=== PATIENT | male | born 1955 | race Caucasian/White ===

== ENCOUNTER 2024-05-11 13:57 | Outpatient (REF) | payer MEDICARE, SELFPAY ==
--- NOTE | ~2024-05-11 | XR_ITS ---
EXAMINATION: XR FOOT, LEFT CLINICAL INFORMATION: Pain. COMPARISON: None available. TECHNIQUE: AP, lateral, and oblique views of the left foot. FINDINGS: No acute fracture or dislocation. Chronic appearing deformity with a well-corticated osseous fragment along the lateral base of the proximal phalanx of the second toe. Moderate multifocal degenerative osteoarthritis with joint space narrowing and mild subcortical sclerosis more prominent in the first toe. Calcaneal spurring at the level of the insertion site of the Achilles tendon and plantar fascia. Well-corticated osseous body adjacent to the plantar surface of the calcaneus on the lateral view. Mild diffuse soft tissue swelling slightly more prominent along the distal first toe. Scattered vascular calcifications. XR/XR foot LT min 3V IMPRESSION: 1. No acute fractures or malalignment. 2. Moderate multifocal degenerative osteoarthritis. 3. Calcaneal spurring. 4. Chronic appearing deformity with a well-corticated osseous fragment along the lateral base of the proximal phalanx of the second toe, correlate with point tenderness. 5. Well-corticated osseous body adjacent to the plantar surface of the calcaneus, possibly sequela of prior trauma or degenerative changes. 6. Diffuse soft tissue swelling that is slightly more prominent along the distal first toe, correlate with physical examination. Electronically signed by: Sinai Lundberg MD 05/11/2024 03:50 PM SWET[facility]
== END 2024-05-11 13:58 | disposition home or self-care (01) ==
LOC: HO.HMGCX 13:57
PROVIDERS: PCP Family Medicine; Visit Provider Registered Nurse
DX: M79.672 Pain in left foot (principal); M77.50 Other enthesopathy of unspecified foot and ankle
CPT/HCPCS: 73630; 99212

== ENCOUNTER 2024-05-11 13:57 | Outpatient (AMB) | payer MEDICARE, SELFPAY ==
--- NOTE | 2024-05-11 14:04 | MHC.OFFWIV ---
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 While every effort has been made to ensure accuracy, curing press maintainer errors may have been included. The patient is a 68 year old male who presents to the clinic today with left foot pain for the last 2 weeks. He reports that 2 weeks ago he was doing some work when he stepped hard on a metal néstor, having pain in the heel of his foot. 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 He reports that the pain is in the heel primarily in worse when he steps down and for the 1st few steps and then subsides. He reports a slight limp as a result, which has thrown off his gait slightly and created pain in the opposite hip. He typically uses a cane for ambulation. [facility] Social History Patient Tobacco Use Status: Former Tobacco user Review of Systems Const All systems reviewed & are unremarkable except as noted in HPI and below Physical Exam Vital Signs: Last Vital Signs Pulse 93 05/11/24 14:06 BP 122/80 05/11/24 14:06 Pulse Ox 96 05/11/24 14:06 Oxygen Delivery Method Room Air 05/11/24 14:06 BMI result Body Mass Index 32.2 Const General: cooperative, healthy appearing, comfortable, no acute distress and well developed Orientation/consciousness: patient oriented x3 Limitations: no limitations Resp Effort & Inspection: normal respiratory effort and able to speak in complete sentences Skin General skin exam: no rashes or lesions noted Neuro General: patient oriented x3 Extrem Other: Left foot and ankle full range of motion. Strength 5/5. Distal neurovascular exam intact. Tender to palpation along the heel and plantar fascia. General: Yes normal to inspection Results Reviewed Results Reviewed: XR images contemporaneously read by me with findings reflecting calcaneal bone spur. No obvious fracture. Assessment & Plan Assessment & Plan (1) Bone spur of foot: Code(s): M77.50 - Other enthesopathy of unspecified foot and ankle Plan: Supportive measures encouraged and reviewed. Prednisone burst prescribed for anti-inflammatory effects due to intolerance of NSAIDs. Advised patient to follow up with PCP with worsening or failure to resolve. Plan See above for full details and plan. Orders: Orders XR foot LT min 3V Today M79.672 - Pain in left foot Medications: New prednisone 40 mg (2 x 20 mg) PO DAILY 3 days 6 tabs 0RF Coding Level of Care Code Est Pt Level 3 (55085) Diagnoses Bone spur of foot M77.50
[2024-05-11 14:06] VITALS: BP 122/80; PULSE 93; O2SAT 96; BMI 32.2
== END 2024-05-11 14:49 | disposition home or self-care (01) ==
PROVIDERS: PCP Family Medicine; Visit Provider Registered Nurse
DX: M77.50 Other enthesopathy of unspecified foot and ankle (principal)

== ENCOUNTER 2024-07-02 09:12 | Outpatient (REF) | payer MEDICARE, MEDICAID, SELFPAY ==
[2024-07-02 14:47] LABS: Adenovirus PCR Not Detected (Not Detect.); Bordetella parapertussis PCR Not Detected (Not Detect.); Bordetella pertussis PCR Not Detected (Not Detect.); Chlamydia pneumoniae PCR Not Detected (Not Detect.); Coronavirus 229E PCR Not Detected (Not Detect.); Coronavirus HKU1 PCR Not Detected (Not Detect.); Coronavirus NL63 PCR Not Detected (Not Detect.); Coronavirus OC43 PCR Not Detected (Not Detect.); Human metapneumovirus PCR Not Detected (Not Detect.); Influenza A PCR Not Detected (Not Detect.); Influenza B PCR Not Detected (Not Detect.); Mycoplasma pneumoniae PCR Not Detected (Not Detect.); Parainfluenza 1 PCR Not Detected (Not Detect.); Parainfluenza 2 PCR Not Detected (Not Detect.); Parainfluenza 3 PCR Not Detected (Not Detect.); Parainfluenza 4 PCR Not Detected (Not Detect.); RSV PCR Not Detected (Not Detect.); Rhino/Enterovirus PCR Not Detected (Not Detect.)
[2024-07-02 16:00] LABS: SARS-CoV-2 PCR Detected (Not Detect.)
== END 2024-07-02 09:13 | disposition home or self-care (01) ==
LOC: HO.LAB 09:12
PROVIDERS: PCP Family Medicine; Visit Provider Physician Assistant
DX: J06.9 Acute upper respiratory infection, unspecified (principal); B34.9 Viral infection, unspecified; H66.002 Acute suppurative otitis media without spontaneous rupture of ear drum, left ear
CPT/HCPCS: 87633; 93005; 99202

== ENCOUNTER 2024-07-02 09:12 | Outpatient (AMB) | payer MEDICARE, MEDICAID, SELFPAY ==
--- NOTE | 2024-07-02 09:32 | MHC.OFFWIV ---
Intake Vital Signs 07/02/24 09:34 Height 5 ft 11 in Weight 230 lb BMI 32.1 BP 114/70 Blood Pressure Location Lt brachial Position Sitting Pulse 92 Pulse Source Pulse Oximeter Temp 98 F Temp Source Oral Pulse Oximetry (%) 93 Oxygen Delivery Method Room Air Intake Visit Reasons: EP-vomiting, chest pain, diarrheas, wheezing Intake Note: Patient here for vomiting, diarrhea,headaches, chest burning which started Saturday Patient Tobacco Use Status: Former Tobacco user Allergies No Known Allergies Allergy (Verified 07/02/24 09:35) Do you need a note to return to daycare/school/sports/work: No HPI HPI Comments History of Present Illness Details History - The patient is a 68-year-old male presenting with gastrointestinal symptoms and respiratory issues. - Gastrointestinal distress began with queasiness, diarrhea, and vomiting approximately three days prior, with no reports of blood or black in the stool or vomitus. Subjective fevers and chills. - Respiratory issues include coughing, sometimes productive, alongside shortness of breath and wheezing, which the patient manages with prescribed inhalers due to a history of asthma and COPD. - The patient experienced headaches and chest burning, with improvement in solid food intake. - Left ear complaints of associated pain. - Notable for no known antibiotic allergies and has taken aspirin and Imodium recently. -Son also sick with similar symptoms a day prior to his onset and is feeling better now with no antibiotics. Physical Exam General: Cooperative, healthy appearing, comfortable and no acute distress Orientation/consciousness: Patient oriented x3 Limitations: No limitations Head: Normal to inspection Ears: Hearing grossly normal bilaterally, external ears normal and TM's left purulent effusion, TM right normal Nose: Normal external nose present, Normal nares present and No nasal discharge present Face and sinus: Normal facial exam and Yes sinuses nontender, slight tenderness noted Mouth: Normal oral and palatal mucosa present and moist mucous membranes Throat: Yes tonsils normal, Yes uvula midline. Posterior oropharynx erythema Eyes: Appearance normal, both eyes and all related structures Neck: Normal visual inspection Respiratory: Clear to auscultation bilaterally. Normal respiratory effort, able to speak in complete sentences, Actively coughing, no respiratory distress, not tachypneic, no tripod positioning and no use of accessory muscles Cardiovascular: Irregular heart rhythm noted normal rate. Normal S1 and S2 Skin: No rashes or lesions noted Neuro: Patient oriented x3 Extremities: Normal to inspection and Yes no clubbing, cyanosis or edema PFSH Social History Patient Tobacco Use Status: Former Tobacco user Review of Systems Const All systems reviewed & are unremarkable except as noted in HPI and below Physical Exam Vital Signs: Last Vital Signs Temp 98 F 07/02/24 09:34 Pulse 92 07/02/24 09:34 BP 114/70 07/02/24 09:34 Pulse Ox 93 07/02/24 09:34 Oxygen Delivery Method Room Air 07/02/24 09:34 BMI result Body Mass Index 32.1 Office Procedures EKG Details: normal sinus rhythm, LAD, LVH with QRS widening and repolarization (seen on prior at [facility] 04/13/23) [id number], Complete Assessment & Plan Assessment & Plan (1) Viral syndrome: Code(s): B34.9 - Viral infection, unspecified Plan: as below (2) Otitis media: Code(s): H66.90 - Otitis media, unspecified, unspecified ear Qualifiers: Chronicity: acute Laterality: left Otitis media type: suppurative Recurrence: non-recurrent Spontaneous tympanic membrane rupture: without spontaneous rupture Qualified Code(s): H66.002 - Acute suppurative otitis media without spontaneous rupture of ear drum, left ear Plan: The patient's acute gastroenteritis is being managed with supportive measures such as hydration and dietary adjustments. Amoxicillin has been prescribed for seven days for suspected bacterial acute otitis media. The observed irregular heartbeat warranted an EKG for further evaluation. Current respiratory conditions, asthma and COPD, are controlled with specific inhalers, and no allergies to antibiotics were noted. Tests for multiple viral infections, including COVID-19 and flu, were conducted. Continued adherence to current medications and dietary supplements as per advice are recommended to support recovery from acute symptoms. Rest, hydration and OTC meds to treat symptoms. Reviewed EKG, nothing acute, same as prior 04/13/23, as above. 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 Patient was informed and verbally consented to the use of an ambient scribe for clinic note documentation during this visit Orders: Orders Resp Pathogen Panel - [facility] [place] J06.9 - Acute upper respiratory infection, unspecified Medications: New amoxicillin 875 mg PO Q12H 14 tabs 0RF Coding Level of Care Code New Pt Level 4 (59082) Diagnoses Viral syndrome B34.9 Non-recurrent acute suppurative otitis media of left ear without spontaneous rupture of tympanic membrane H66.002 Chronicity: acute Laterality: left Otitis media type: suppurative Recurrence: non-recurrent Spontaneous tympanic membrane rupture: without spontaneous rupture CPT Codes EKG - CPT: 67160-[id number], Complete ([id number])
[2024-07-02 09:34] VITALS: BP 114/70; PULSE 92; TEMP 36.6; O2SAT 93; BMI 32.1
== END 2024-07-02 10:01 | disposition home or self-care (01) ==
PROVIDERS: PCP Family Medicine; Visit Provider Physician Assistant
DX: B34.9 Viral infection, unspecified (principal); H66.002 Acute suppurative otitis media without spontaneous rupture of ear drum, left ear

== ENCOUNTER 2024-11-11 09:33 | Outpatient (AMB) | payer MEDICARE, MEDICAID, SELFPAY ==
[2024-11-11 09:46] VITALS: BP 120/80; PULSE 63; TEMP 36.6; O2SAT 98; BMI 32.1
--- NOTE | 2024-11-11 09:46 | AM.OFFWIN_ITS ---
Intake Vital Signs 11/11/24 09:46 Height 5 ft 11 in Weight 230 lb BMI 32.1 BP 120/80 Blood Pressure Location Rt brachial Position Sitting Pulse 63 Pulse Source Pulse Oximeter Temp 97.8 F Temp Source Oral Pulse Oximetry (%) 98 Oxygen Delivery Method Room Air Intake Visit Reasons: EP congestion, mucus * Patient Tobacco Use Status: Former Tobacco user Allergies No Known Allergies Allergy (Verified 11/11/24 09:46) Do you need a note to return to daycare/school/sports/work: No HPI HPI Comments History of Present Illness Details History - The patient is a 68-year-old male pres enting with acute respiratory symptoms and left ear pain. - He reports persistent cough, congestio n, wheezing, and shortness of breath las ting five to six days. - He experienced a fever once, which amandeep f-resolved, and denied regularly monitoring temperatures. - His medical history includes an NSTEMI in September, treated with stent placement. - He reports left ear pain with a histor y of past ear infection, now attributed to head congestion. - The patient uses Xolair, Trelegy, albu terol inhaler as needed and Flonase Physical Exam General: Cooperative, healthy appearing, comfortable and no acute distress Orientation/consciousness: Patient oriented x3 Limitations: No limitations Head: Normal to inspection Ears: Left ear pain present, history of ear infection Nose: Normal external nose present, Normal nares present and No nasal discharge present Face and sinus: Normal facial exam and Yes sinuses nontender Mouth: Normal oral and palatal mucosa present and moist mucous membranes Throat: Yes tonsils normal, Yes uvula midline. Posterior oropharynx erythema Eyes: Appearance normal, both eyes and all related structures Neck: Normal visual inspection Respiratory: Clear to auscultation bilaterally. Normal respiratory effort, able to speak in complete sentences, no respiratory distress, not tachypneic, no tripod positioning and no use of accessory muscles Cardiovascular: Regular rate and rhythm. Normal S1 and S2 Skin: No rashes or lesions noted Neuro: Patient oriented x3 Extremities: Normal to inspection and Yes no clubbing, cyanosis or edema PFSH Social History Patient Tobacco Use Status: Former Tobacco user Review of Systems Const All systems reviewed & are unremarkable except as noted in HPI and below Physical Exam Vital Signs: Last Vital Signs Temp 97.8 F 11/11/24 09:46 Pulse 63 11/11/24 09:46 BP 120/80 11/11/24 09:46 Pulse Ox 98 11/11/24 09:46 Oxygen Delivery Method Room Air 11/11/24 09:46 BMI result Body Mass Index 32.1 Assessment & Plan Assessment & Plan (1) URI, acute: Code(s): J06.9 - Acute upper respiratory infection, unspecified Plan: VSS, pt well appearing and PE unremarkable. A prescription for a Z-Cy was provided to address possible bacterial infection, leveraging its anti- inflammatory properties for airway management. The patient is to continue using the albuterol inhaler, with assurance of its availability and expiration status. Instruction was given on Flonase administration techniques for enhanced sinus delivery. Patients should observe symptom progression, especially breathing difficulties, especially given his recent NSTEMI history. He was advised to seek prompt medical attention for any significant symptom escalation or potential complications. Continued follow-up with primary care for cardiovascular management remains essential. Patient was informed and verbally consented to the use of an ambient scribe for clinic note documentation during this visit Medications: New azithromycin For 250 mg dose pack: take 500 mg today (day 1), then 250 mg for 4 days (days 2-5) PO 6 tabs 0RF Coding Level of Care Code New Pt Level 3 (61654) Diagnoses URI, acute J06.9
--- OUTSIDE RECORDS SUMMARY | 2024-11-11 10:14 | XMS_ITS | Data Portability ---
Author Organization [employer] Address [address] [place] [id number] Care Team Providers Care Principal Data Architect Name Role Phone [facility] Referring Provider [phone] Assessment No assessment recorded. Plan of Treatment Reminders Order Date Submit Date Provider Last Modified By Organization Details Last Modified Time Details Appointments None recorde d. Lab culture , urine 022 12/10/19 [facility] (Centralized Electronic Ordering - All Locations), Patient Can Go To The Location Of Their Choice, [id number] 07:13:06 Referral None recorde d. Procedures None recorde d. Surgeries None recorde d. Imaging None recorde d. Medication Orders None recorde d. Patient TargetsNo targets recorded. Patient InstructionsNo instructions recorded. Reason for Referral None Reported. Results Created Date Observation Date Name Description Value Unit Range Abnormal Flag Note LastModifiedBy Organization Detail LastModifiedTime 12/10/1912/09/2021 URINE CULTU RE specimen description URINE Not Available [facility] (Centralized Electronic Ordering - All Locations) Patient Can Go To The Location Of Their Choice, [id number] 12/11/2021 07:13:05 12/10/1912/09/2021 URINE CULTU RE special requests NONE Not Available [facility] (Centralized Electronic Ordering - All Locations) Patient Can Go To The Location Of Their Choice, [id number] 12/11/2021 07:13:05 12/10/19 22 12/11/2021 URINE CULTU RE culture NO GROWTH Not Available [facility] (Centralized Electronic Ordering - All Locations) Patient Can Go To The Location Of Their Choice, [id number] 12/11/2021 07:13:05 12/10/19 22 12/11/2021 URINE CULTU RE report status FINAL 2021 Not Available [facility] (Centralized Electronic Ordering - All Locations) Patient Can Go To The Location Of Their Choice, [id number] 12/11/2021 07:13:05 Result Notes None recorded. Medical Equipment None Reported. Medications Name Sig Start Date Stop Date Status Note LastModified by Organization Details LastModified Time clotrimazole 10 mg kyree LET 1 KYREE DISSOLVE IN MOUTH 5 TIMES A DAY FOR 14 DAYS active Not Available Not Available Not Available nystatin 100,000 unit/mL oral suspension SWISH WITH 1ML FOR 1 MINUTE FOUR TIMES DAILY FOR 10 DAYS active Not Available Not Available Not Available azithromycin 250 mg tablet TAKE 2 TABLETS BY MOUTH ON DAY 1, THEN 1 TABLET ON DAYS 2-10 DIRECTED active Not Available Not Available Not Available prednisone 5 mg tablet TAKE DIRECTED FOR 14 DAYS. SEE ATTACHED SHEET active Not Available Not Available No t Available fexofenadine 180 mg tablet TAKE 1 TABLET BY MOUTH EVERY DAY active Not Available Not Available No t Available peg-electrol yte solution 420 gram oral solution TAKE 8 ML DIRECTED active Not Available Not Available Not Available erythromycin 5 mg/gram (0.5 %) eye ointment APPLY TO AFFECTED EYE(S) 3 TIMES PER DAY FOR 7 DAYS active Not Available Not Available No t Available docusate sodium 100 mg capsule TAKE 2 CAPSULES BY MOUTH EVERY DAY active Not Available Not Available No t Available omeprazole 20 mg capsule,lela yed release TAKE 2 CAPSULES BY MOUTH TWICE A DAY active Not Available Not Available No t Available fluticasone propionate 50 mcg/actuatio n nasal spray,suspen jhon SPRAY 2 SPRAYS INTO EACH NOSTRIL EVERY DAY active Not Available Not Available No t Available oxycodone 5 mg tablet TAKE 1 TABLET BY MOUTH EVERY 4 HOURS NEEDED FOR PAIN active Not Available Not Available No t Available [place] 0.025 % (0.035 %) eye drops USE 1 DROP(S) IN BOTH EYES TWICE A DAY NEEDED active Not Available Not Available No t Available peg 3350-electro lytes 236 gram-22.74 gram-6.74 gram-5.86 gram solution TAKE 8 OUNCE BY MOUTH DIRECTED FOLLOW INSTRUCTION S PROVIDED TO YOU BY [facility]CTORS OFFICE active Not Available Not Available No t Available Dupixent 300 mg/2 mL subcutaneous syringe active Not Available Not Available Not Available Xolair 75 mg/0.5 mL subcutaneous syringe active Not Available Not Available Not Available Xolair 150 mg/mL subcutaneous syringe active Not Available Not Available Not Available Trelegy Ellipta 200 mcg-62.5 mcg-25 mcg powder for inhalation INHALE 1 PUFF INTO THE LUNGS ONCE DAILY. active Not Available Not Available Not Available Vitals Date Recorded Body weight Body temperature Heart rate Body height Respiratory rate Oxygen saturation Oxygen saturation in Arterial blood by Pulse oximetry Heart rate Oxygen saturation Oxygen saturation in Arterial blood by Pulse oximetry Respiratory rate Body weight Body height Body temperature Systolic blood pressure Diastolic blood pressure Systolic blood pressure Diastolic blood pressure Provider Name and Address Organization Details Last Updated DateTime 2 674872 g 98.9 [degF] 60 /min 182.88 cm 20 /min 99 % 99 % 60 /min 99 % 99 % 20 /min 203052 g 182.88 cm 98.9 [degF] 117 mm[Hg] 55 mm[Hg] 117 mm[Hg] 55 mm[Hg] Not Available [facility] - production 2 17:05:51 Social History None recorded. Functional Status None recorded. Mental Status None recorded. Family History Nothing Reported. Medical History No medical history recorded. Past Encounters Encounter ID Performer Location Encounter Start Date Encounter Closed Date Diagnosis/Indication Diagnosis SNOMED-CT Code Diagnosis ICD10 Code Diagnosis Note [id number] Jhonny Marinelli MD [facility] - [facility] [address] [place] [phone] 12/09/2021 16:44:19 03/26/2022 11:47:03 Dysuria [id number] R30.9 Will send off urine culture. U/A not suggestive of UTI at this time. Advised to f/u with PCP re: urology referral Health Concerns Section Related Observation LastModified by Organization Detai ls LastModified Time None Recorded Concern Status LastModified by Organization Details LastModified Time None Recorded Advance Directives Directive None Recorded Payers Insurance Date Sequence Insurance Name Policy Number Policy Turk Covered Member ID Turk Member ID Guarantor Name 12/09/2021 1 [facility] - DOS PRIOR TO 2022 - DUAL ELIGIBLE (MEDICARE REPLACEMENT/ADV ANTAGE - HMO) Jovany Phillips [id number] Jovany Phillips Notes Date Note Type Note Provider Name and Address Organization Details Recorded Time 12/09/2021 text/html [facility] Nursing Assessment: Reason For Request: Burning with urination Patient Reports: Painful urination; Painful urination with or without fever; Inability to fully empty bladder Chief Complaints: UTI/Pyelonephritis PMH: COPD/Asthma Allergies: No Known Comments: Member c/o burning sensation and pain with urination. He can't keep a stream during urination it trickles. Denies bleeding, no foul odor, urine clear but does have urgency and frequency, denies fever or chills. He has had these symptom over a year but every check up has been benign, denies prostate issues. Would like an in home assessment of symptoms. .................. .................. .................. .................. .................. .................. .................. ............... Higher Level Teaching Assistant Note: Patient is a 66 year old male with concern for UTI. Patient alert, oriented and ambulatory. Patient in no acute distress, airway patent, breathing normally, skin WPD. Patient has been experiencing burning with urination for a while now. Patient states that it kent right before he urinates, when he's urinating he looses pressure and the stream begins to trickle and then starts to burn again. Patient also notes pressure in his bladder area when urinating. Patient denies any past urinary issues. Patient has been tested for UTI in the past, with negative results. No culture was every submitted. Urine sample obtained and dipped; no significant changes to note. No further complaints. Vital signs assessed and all within normal limits. Red flags discussed. Consulted with Dr. Marinelli. Patient is to follow up with PCP/care team regarding his signs, symptoms and todays visit. Patient should consider making an appointment with a urologist. Urine brought to [facility] for culture. Patient to monitor symptoms and health for any changes. Contact [facility] for re-visit if symptoms persist. Contact 911 for any discussed red flags or other emergencies. .................. .................. .................. .................. .................. .................. .................. ............... Disposition: Fulfilled note:- Per above- Has had clean urines in the past- Mild flank pain in the past few days (not today); low concern for kidney stones Jhonny Marinelli MD [address] [facility],[address], [place], [phone], [email or web address] 12/09/2021 21:50:34
--- OUTSIDE RECORDS SUMMARY | 2024-11-11 10:15 | XMS_ITS | Data Portability ---
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 Left ossiculoplasty prosthesis is still in the process of extrusion, but we will leave this alone for now. I gave him reassurance that the ears appear stable and I would recommend continued observation with follow-up in 1 year. The itchiness in the left ear may be due to the presence of humidity due to the perforation. Recommended the Torin's ear dryer to be used if he has sensation of moisture which will help to dehumidifier the ear canal and hopefully relieve his symptoms. I strongly recommend once again that he avoid Q-tip use. [email or web address] Not available 02/05/2024 09:56:49 Plan of Treatment Reminders Order Date Submit Date Provider Last Modified By Organization Details Last Modified Time Details Appointments Establish ed 10 2024 09:00A M GARETH DAUGHERTY MD Not available Not available Not available Lab None recorded. Referral None recorded. Procedures None recorded. Surgeries None recorded. Imaging None recorded. Medication Orders None recorded. Patient TargetsNo targets recorded. Patient Instructions Encounter Date Encounter Id Patient Instructions Last Modified By Organization Details Last Modified Time 12/13/2023 [id number] Surgical cavity clean and moist. Finish current antibiotic. Follow up as scheduled. [email or web address] Not available 12/13/2023 12:08:33 Reason for Referral None Reported. Results Created Date Observation Date Name Description Value Unit Range Abnormal Flag Note LastModifiedBy Organization Detail LastModifiedTime 02/18/20 24 09/18/2023 imagi ng/di agnos tic resul t No observ ation record ed. [email or web address] Not Available 19:41:52 02/18/20 24 09/25/2023 imagi ng/di agnos tic resul t No observ ation record ed. [email or web address] Not Available 19:41:54 02/18/20 24 09/29/2020 imagi ng/di agnos tic resul t No observ ation record ed. [email or web address] Not Available 19:41:57 02/18/20 24 11/03/2019 imagi ng/di agnos tic resul t No observ ation record ed. [email or web address] Not Available 19:42:27 02/18/20 24 11/19/2019 imagi ng/di agnos tic resul t No observ ation record ed. [email or web address] Not Available 19:42:33 02/18/20 24 03/20/2023 imagi ng/di agnos tic resul t No observ ation record ed. [email or web address] Not Available 19:43:06 02/18/20 24 03/20/2023 imagi ng/di agnos tic resul t No observ ation record ed. [email or web address] Not Available 19:43:10 02/18/20 24 04/05/2020 imagi ng/di agnos tic resul t No observ ation record ed. [email or web address] Not Available 19:43:11 02/18/20 24 09/29/2020 audio gram No observ ation record ed. [email or web address] Not Available 19:43:37 02/18/20 24 11/03/2019 audio gram No observ ation record ed. [email or web address] Not Available 19:43:50 02/18/20 24 04/05/2020 audio gram No observ ation record ed. [email or web address] Not Available 19:44:10 Result Notes None recorded. Problems Name Problem SNOMED Code Status Onset Date Resolution Date Notes Provider Name and Address Organization Details Recorded Time Bilatera l disorder of Eustachi an tubes 80295474228 69368 Active 2019 Other specifie d disorder s of Eustachi an tube, bilatera l; Note: Date Diagnose d: 11/03/2019 10:37 AM (H69.83) Not Available [facility] 4 02:51:37 Marginal perforat ion of tympanic membrane 60379489 Active 2022 Other marginal perforat ions of tympanic membrane , left ear; Note: Date Diagnose d: 3 10:39 AM (H72.2X2 ) Not Available [facility] 4 02:51:41 Granulom atous disorder of the skin and subcutan eous tissue 432182857 Completed 201901/31/2024 Granulom atous disorder of the skin and subcutan eous tissue, unspecif ied; Note: Date Diagnose d: 0 12:00 PM (L92.9) Not Available [facility] 4 02:51:42 Mixed conducti ve and sensorin eural hearing loss of left ear 13382210640 107 Active 2020 Mixed conducti ve and sensorin eural hearing loss, unilater al, left ear with restrict ed hearing on the contrala teral side; Note: Date Diagnose d: 09/29/2020 4:18 PM (H90.A32 ) Not Available [facility] 4 02:51:37 Conducti ve hearing loss, bilatera l 063985264 Active 2019 Conducti ve hearing loss, bilatera l; Note: Date Diagnose d: 0 2:49 PM (H90.0) Conduc tive hearing loss, bilatera l; Note: Date Diagnose d: 11/03/2019 11:09 AM (H90.0) ; Start Date : 11/03/19 Not Available [facility] 4 02:51:38 Chronic sphenoid al sinusiti s 70582456 Active 2022 Chronic sphenoid al sinusiti s; Note: Changed from J32.3 to J32.3 (07/24/19 24 9:53 AM) , Date Diagnose d: 3 10:39 AM (J32.3) Not Available [facility] 4 02:51:37 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 831613604 Completed 201901/31/2024 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, right ear; Note: Date Diagnose d: 0 9:04 AM (H95.01) Not Available [facility] 4 02:51:41 Orthosta tic hypotens ion 05333649 Active 2019 Hypotens ion, postural ; Note: Date Diagnose d: 11/03/2019 11:44 AM (I95.1) Not Available [facility] 4 02:51:35 Impacted cerumen of bilatera l ears 51415314504 05497 Active 2019 Impacted cerumen, bilatera l; Note: Date Diagnose d: 0 3:16 PM (H61.23) Not Available [facility] 4 02:51:37 Pain of left temporom andibula r joint 97965781687 957124 Active 2019 Arthralg ia of left temporom andibula r joint; Note: Date Diagnose d: 11/03/2019 10:37 AM (M26.622 ) Not Available [facility] 4 02:51:39 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 - [facility] 4 17:05:44 Partial loss of ear ossicles 14446800 Active 2023 GARETH DAUGHERTY MD [address] [facility],[place] [address], [facility] [place], [address] , [facility] - [facility] 17:10:21 Problem Notes None recorded. Procedures Surgical History Date Name Laterality Status Provider Name and Address Organization Details Recorded Time 024 JMSNasal/Sinus Endoscopy-PRIOR surgical cavities completed NONI HO MD [address] [facility],[address], [address], [facility] - [facility] 01/16/2024 16:09:59 024 JMSNasal/Sinus Endoscopy-DEBRIDEME NT completed NONI HO MD 100 [facility],[address], [address], [facility] - [facility] 12/25/2023 11:53:29 024 Nasal Endoscopy completed [facility] 100 [facility], [address], [facility] - [facility] 12/13/2023 12:47:38 024 endoscopic sphenoidectomy completed NONI HO MD [address] [facility],[address], [address], [facility] - [facility] 12/10/2023 14:24:18 functional endoscopic sinus surgery completed NONI HO MD [address] [facility],[address], [address], [facility] - [facility] 12/10/2023 14:24:02 open reduction of nasal fracture completed Kaitlyn Becker [place] - [facility] 02/05/2024 09:15:22 operative procedure on knee completed Kaitlyn Becker [place] - [facility] 02/05/2024 09:19:07 hemorrhoidectomy completed Kaitlyn Becker [place] - [facility] 02/05/2024 09:19:19 Imaging Results Imaging Date Name Status [facility]Modified by [facility] Details LastModified Time 09/18/2023 imaging/diagno stic result completed Information not available 02/18/2024 19:41:52 09/25/2023 imaging/diagno stic result completed Information not available 02/18/2024 19:41:54 09/29/2020 imaging/diagno stic result completed Information not available 02/18/2024 19:41:57 11/03/2019 imaging/diagno stic result completed Information not available 02/18/2024 19:42:27 11/19/2019 imaging/diagno stic result completed Information not available 02/18/2024 19:42:33 03/20/2023 imaging/diagno stic result completed Information not available 02/18/2024 19:43:06 03/20/2023 imaging/diagno stic result completed Information not available 02/18/2024 19:43:10 04/05/2020 imaging/diagno stic result completed Information not available 02/18/2024 19:43:11 09/29/2020 audiogram completed Information not available 02/18/2024 19:43:37 11/03/2019 audiogram completed Information not available 02/18/2024 19:43:50 04/05/2020 audiogram completed Information not available 02/18/2024 19:44:10 Procedure Notes None recorded. Medical Equipment None Reported. Allergies No known drug allergies Medications Name Sig Start Date Stop Date Status Note LastModified by Organization Details LastModified Time losartan 50 mg tablet TAKE 1 TABLET BY MOUTH EVERY DAY 02/04 completed Not Available Not Available Not Available prednison e 10 mg tablet TAKE 6 TABS DAILY FOR 2 DAYS THEN DECREASE BY 1 TAB EVERY 2 DAYS UNTIL FINISHED 02/04 completed Not Available Not Available Not Available doxycycli ne hyclate 100 mg capsule by mouth 2023 active Medicati on ID: [id number] D uration Value: 14 Brand Name: doxycycl ine hyclate Send Method: E-Prescr ibed Sub s Allowed: subs OK Speci al Instruct ion: Take 1 PO BID X 21 days Med icationG enericNa me: doxycycl ine hyclate Not Available Not Available Not Available simvastat in 10 mg tablet TAKE 1 TABLET BY MOUTH EVERY DAY AT BEDTIME FOR 180 DAYS active Not Available Not Available No t Available prednison e 5 mg tablet PLEASE SEE ATTACHED FOR DETAILED DIRECTIO NS 02/04 completed Not Available Not Available Not Available fexofenad ine 180 mg tablet TAKE 1 TABLET BY MOUTH EVERY DAY active Not Available Not Available No t Available ciproflox acin 500 mg tablet TAKE 1 TABLET BY MOUTH EVERY 12 HOURS FOR 7 DAYS 02/04 completed Not Available Not Available Not Available aspirin 81 mg tablet,de layed release TAKE 1 TABLET BY MOUTH EVERY DAY active Not Available Not Available No t Available tramadol 50 mg tablet TAKE 1 TO 2 TABLETS BY MOUTH EVERY 4 HOURS NEEDED FOR MODERATE PAIN. DO NOT EXCEED 8 TABLETS (400MG) PER DAY. 02/04 completed Not Available Not Available Not Available ciproflox acin 0.3 % eye drops 08/07 completed Medicati on ID: [id number] B rand Name: Ciloxan Send Method: E-Prescr ibed Sub s Allowed: subs OK Speci al Instruct ion: Instill 4 drops twice a day into affected ear for 10 days [facility] me: Ciloxan Not Available Not Available Not Available losartan 25 mg tablet active Medicati on ID: [id number] B rand Name: losartan Send Method: E-Prescr ibed Sub s Allowed: subs OK Medic ationGen ericName : losartan Not Available Not Available Not Available hydrochlo rothiazid e 12.5 mg capsule TAKE 1 CAPSULE BY MOUTH DAILY FOR 60 DAYS. 02/04 completed Not Available Not Available Not Available docusate sodium 100 mg capsule TAKE 1 CAPSULE BY MOUTH TWICE A DAY 02/04 completed Not Available Not Available Not Available omeprazol e 20 mg capsule,d elayed release TAKE 1 CAPSULE BY MOUTH EVERY DAY active Not Available Not Available No t Available scopolami ne 1 mg over 3 days transderm al patch APPLY 1 PATCH TO THE BACK OF THE LEFT EAR EVERY 72 HOURS. REMOVE OLD PATCH BEFORE APPLYING NEW ONE. DISCONTI NUE WHEN NAUSEA CONTROLL ED. 02/04 completed Not Available Not Available Not Available losartan 100 mg tablet TAKE 1 TABLET BY MOUTH EVERY DAY 02/04 completed Not Available Not Available Not Available fluticaso ne propionat e 50 mcg/actua tion nasal spray,[employer] pension SPRAY 2 SPRAYS INTO EACH NOSTRIL EVERY DAY 02/04 completed Not Available Not Available Not Available amoxicill in 875 mg-potass ium clavulana te 125 mg tablet TAKE 1 TABLET BY MOUTH TWICE A DAY FOR 7 DAYS 02/04 completed Not Available Not Available Not Available Vitamin B-12 1,000 mcg tablet 2019 active Medicati on ID: [id number] B rand Name: Vitamin B-12 Sen d Method: E-Prescr ibed Sub s Allowed: subs OK Medic ationGen ericName : Vitamin B-12 Not Available Not Available Not Available oxycodone 5 mg tablet TAKE 1 TABLET BY MOUTH EVERY 4 HOURS NEEDED SEVERE PAIN 02/04 completed Not Available Not Available Not Available TobraDex 0.3 %-0.1 % eye drops,[employer] pension 02/04 completed Medicati on ID: [id number] D uration Value: 10 Prescri bed By Name: Kilo Munroe nd Name: TobraDex Send Method: E-Prescr ibed Sub s Allowed: subs OK Speci al Instruct ion: Instill 4 drops in the affected ear BID for 10 days Med icationG enericNa me: TobraDex Not Available Not Available Not Available enoxapari n 40 mg/0.4 mL subcutane ous syringe INJECT THE CONTENTS OF 1 SYRINGE SUBCUTAN EOUSLY EVERY DAY 02/04 completed Not Available Not Available Not Available Vitamin D3 25 mcg (1,000 unit) tablet 2019 active Medicati on ID: [id number] D uration Value: 90 Brand Name: Vitamin D3 Send Method: E-Prescr ibed Sub s Allowed: subs OK Speci al Instruct ion: TAKE 1 TABLET BY MOUTH EVERY DAY Medi cationGe nericNam e: Vitamin D3 Not Available Not Available Not Available Ciprodex 0.3 %-0.1 % ear drops,[employer] pension Instill 4 drop into left ear twice a day as directed 02/04 completed Medicati on ID: [id number] D uration Value: 10 Brand Name: Ciprodex Send Method: E-Prescr ibed Sub s Allowed: subs OK Speci al Instruct ion: x 10 days Med icationG enericNa me: Ciprodex Not Available Not Available Not Available GaviLyte- G 236 gram-22.7 4 gram-6.74 gram-5.86 gram oral solution TAKE 8 OUNCE BY MOUTH DIRECTED DRINK A GLASS EVERY 10-15 MINUTES active Not Available Not Available No t Available Combivent Respimat 20 mcg-100 mcg/actua tion solution for inhalatio n INHALE 1 PUFF UP TO 4 TIMES A DAY NEEDED active Not Available Not Available No t Available Incruse Ellipta 62.5 mcg/actua tion powder for inhalatio n 02/04 completed Medicati on ID: [id number] D uration Value: 30 Brand Name: Incruse Ellipta Send Method: E-Prescr ibed Sub s Allowed: subs OK Speci al Instruct ion: INHALE 1 PUFF BY MOUTH EVERY DAY 24 HOURS APART Me dication GenericN estefania: Incruse Ellipta Not Available Not Available Not Available Breo Ellipta 200 mcg-25 mcg/dose powder for inhalatio n 02/04 completed Medicati on ID: [id number] D uration Value: 90 Brand Name: Breo Ellipta Send Method: E-Prescr ibed Sub s Allowed: subs OK Speci al Instruct ion: INHALE 1 PUFF DAILY Me dication GenericN estefania: Breo Ellipta Not Available Not Available Not Available Fasenra 30 mg/mL subcutane ous syringe 02/04 completed Medicati on ID: [id number] D uration Value: 28 Brand Name: Fasenra Send Method: E-Prescr ibed Sub s Allowed: subs OK Medic ationGen ericName : Fasenra Not Available Not Available Not Available Xolair 75 mg/0.5 mL subcutane ous syringe active Not Available Not Available Not Available Xolair 150 mg/mL subcutane ous syringe active Not Available Not Available Not Available Trelegy Ellipta 200 mcg-62.5 mcg-25 mcg powder for inhalatio n INHALE 1 PUFF INTO THE LUNGS ONCE DAILY. active Not Available Not Available No t Available Vitals Date Recorded Body height Body mass index (BMI) Body weight Provider Name and Address Organization Details Last Updated DateTime 12/25/2023 180.34 cm 32.8 kg/m2 247273.21 g Tejas Tru[place] - [facility] 12/25/2023 11:26:50 Date Recorded Body height Body mass index (BMI) Body weight Provider Name and Address Organization Details Last Updated DateTime 01/16/2024 180.34 cm 32.8 kg/m2 037034.21 g Tejas Trujillo [place] - [facility] 01/16/2024 15:50:49 Date Recorded Body height Body mass index (BMI) Body weight Provider Name and Address Organization Details Last Updated DateTime 02/05/2024 180.34 cm 32.8 kg/m2 138272.21 g Kaitlyn Becker [facility] 02/05/2024 09:07:08 Date Recorded Body height Body mass index (BMI) Body weight Provider Name and Address Organization Details Last Updated DateTime 12/13/2023 180.34 cm 32.8 kg/m2 838140.21 g Kaitlyn Becker [facility] 12/13/2023 11:50:46 Social History None recorded. Functional Status None recorded. Mental Status None recorded. Family History Nothing Reported. Medical History Condition Response Allergies/Hayfever Y Nasal or Sinus Problems Y Anemia Y Diabetes Y Hyperlipidemia Y Asthma Y GERD/Reflux Y Sleep Disorder Y Hypertension Y Past Encounters Encounter ID Performer Location Encounter Start Date Encounter Closed Date Diagnosis/Indication Diagnosis SNOMED-CT Code Diagnosis ICD10 Code Diagnosis Note [id number] YUMIKO LEWIS PA-C [facility] [address] [address] 12/13/2023 11:47:45 12/13/2023 12:03:20 Chronic sphenoidal sinusitis 84051623 J32.3 [id number] NONI MOLINA MD [facility] [address] [address] 12/25/2023 11:16:43 12/25/2023 11:59:34 Chronic sphenoidal sinusitis 41070674 J32.3 Patient with chronic sinusitis and recent issues with right sphenoid sinusitis. Endoscopic drainage performed. Treated for Pseudomona s infection. Crusting debrided today. I suspect his headaches are likely tension headaches but I am hopeful his symptoms might improved with the removal of the sphenoid crust. He will start saline irrigation s. He had a mild vagal reaction. f/u in 3 weeks as planned Headache 70225591 R51.9 [id number] NONI MOLINA MD [facility] [address] [address] 01/16/2024 15:21:53 01/16/2024 16:11:49 Chronic sphenoidal sinusitis 03956509 J32.3 Overall doing well. No evidence of residual crusting. Suggest irrigation s twice weekly. Follow-up with Dr. Daugherty for management of his ear disease. I can see him back in the future as necessary Bilateral tympanic membrane central perforation 7121328120 936629 H72.03 [id number] GARETH DAUGHERTY MD [facility] [address] [address] 02/05/2024 08:51:50 02/05/2024 09:56:27 Adhesive middle ear disease 6573111 H74.11 Bilateral disorder of Eustachian tubes 9388343646 384822 H69.83 Central pe rforation of left tympanic membrane 8949768048 683991 H72.02 Marginal p erforation of tympanic membrane 45929023 H72.2X2 Partial lo ss of ear ossicles 36704705 H74.323 Health Concerns Section Related Observation LastModified by Organization Detai ls LastModified Time None Recorded Concern Status LastModified by Organization Details LastModified Time None Recorded Advance Directives Directive None Recorded Payers Insurance Date Sequence Insurance Name Policy Number Policy Turk Covered Member ID Turk Member ID Guarantor Name 08/27/2024 3 [facility] [place]IC[place] REPLAC[place]/AD VANTAGE - HMO) Jovany Phillips [id number] Jovany Phillips 01/27/2024 2 [place] [facility] Jovanyaldo Phillips [id number] Jovany Phillips 08/28/2024 3 [facility] ([facility] H[facility]) Jovany Phillips [id number] Jovany Phillips 08/20/2024 1 [place] [employer] Jovany Phillips [id number] Jovany Phillips 08/28/2024 2 [facility] - DOS ON OR AFTER 2022 - [employer] (MEDICARE REPLACEMENT/AD VANTAGE - HMO) Jovany Phillips [id number] Jovany Phillips 10/02/2024 2 [place] [facility] Jovany Phillips [id number] Jovany Phillips Notes Date Note Type Note Provider Name and Address Organization Details Recorded Time 12/13/2023 text/html 68 year old male presents for postoperative evaluation following left endoscopic sphenoidotomy with tissue removal on 12/[address] Ho. Not much pain, no bleeding from the nose. Spitting up a little blood in the morning. No fevers. NONI OH MD [address] [facility],[address], [address], [facility] 12/13/2023 12:47:51 12/25/2023 text/html Patient still no alexis a bandlike headache. He underwent endoscopic drainage of the right sphenoid sinus. Has been doing saline spray 4 times daily NONI HO MD 100 [facility],[address], [address], [facility] - [facility] 12/25/2023 11:57:01 01/16/2024 text/html Patient found to have chronic sphenoid sinusitis with Pseudomonas. He really has not had any significant complaints. Last visit significant crusting was noted. He has been doing irrigations and noted some fullness in his ears. He has a history of chronic eustachian tube dysfunction and adhesive ear disease, now with TM perforations NONI HO MD [address] [facility],[address] [place], [address], [place] - [facility] 01/16/2024 16:11:41 02/05/2024 text/html Patient with his tory of chronic eustachian tube dysfunction. He had cholesteatoma in the left ear which was operated on back in 2007. He had two stage surgery for cholesteatoma in the right ear in 2019 and 2020. Patient did well postoperatively and had bilateral T tubes in place as of September 2020. I saw him back in March patient was forming a new limited retraction pocket on the right at the site of the old T-tube. The left T-tube had also extruded and there was a small perforation at that site.Patient recently had sinus surgery with Dr. Ho. Patient reports that the left ear is feeling intermittently itchy and is prone to getting blocked up, but no otorrhea. GARETH DAUGHERTY MD [address] [facility],[place] [address], [place], [address], [facility] - [facility] 02/05/2024 09:57:19
--- OUTSIDE RECORDS SUMMARY | 2024-11-11 10:15 | XMS_ITS | Data Portability ---
Author Organization [facility], PAIN OFFICE Address [address] [place] [address] Care Team Providers Care Radio Time Buyer Name Role Phone CARLENE ALFONSO Primary Care Provider Assessment Encounter Date Assessment Date Assessment LastModified by Organization Details LastModified Time 05/25/2024 05/25/2024 Jovany Phillips is a 68 year old man with Right knee pain. X-ray Knee shows osteoarthritis . He has trialed physical therapy with no pain benefit. He is here for a right knee steroid injection under ultrasound guidance .The risks and benefits of the procedure? ? ? were discussed in detail. He wishes to proceed. He will follow up for a left knee injection under ultrasound guidance [email or web address] Not available 05/25/2024 10:40:49 06/01/2024 06/01/2024 Jovany Phillips is a 68 year old man who is complaining of knee pain, left is greater than right. X-ray Knee shows osteoarthritis . He has trialed physical therapy with no pain benefit. He is here for a left knee steroid injection under ultrasound guidance .The risks and benefits of the procedure were discussed in detail. He wishes to proceed. He will follow up for a LESI in 08/26/2024 [email or web address] Not available 06/01/2024 11:32:44 08/19/2024 08/19/2024 Jovany Phillips is a 68 year old man with low back pain radiating into both lower extremities. On exam ,he has pain on flexion. MRI Lumbar spine shows Spondylotic and degenerative disc changes of the lumbar spine are present . He is here for a Lumbar epidural steroid injection under fluoroscopic guidance . The risks and benefits of the procedure were discussed in detail. He wishes to proceed. He is complaining of Right knee pain. X-ray Knee shows osteoarthritis . He has trialed physical therapy with no pain benefit. I recommend a right knee steroid injection under ultrasound guidance .The risks and benefits of the procedure? ? ? were discussed in detail. He wishes to proceed. An appointment has been booked for the same. 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 [email or web address] Not available 08/19/2024 13:59:51 08/31/2024 08/31/2024 Jovany Phillips is a 68 year old man who is complaining of knee pain, left is greater than right. X-ray Knee shows osteoarthritis . He has trialed physical therapy with no pain benefit. He is here for a left knee steroid injection under ultrasound guidance .The risks and benefits of the procedure were discussed in detail. He wishes to proceed. He will follow up for a right knee steroid injection under ultrasound guidance [email or web address] Not available 08/31/2024 10:38:01 09/07/2024 09/07/2024 Jovany Phillips is a 68 year old man with Right knee pain. X-ray Knee shows osteoarthritis . He has trialed physical therapy with no pain benefit. He is here for a right knee steroid injection under ultrasound guidance .The risks and benefits of the procedure? ? ? were discussed in detail. He wishes to proceed. He will follow up as needed [email or web address] Not available 09/07/2024 10:01:48 Plan of Treatment Reminders Order Date Submit Date Provider Last Modified By Organization Details Last Modified Time Details Appointments PROCEDURE 2024 11:30A M Guillermo winter MD Not available Not available Not available Lab None recorded. Referral None recorded. Procedures None recorded. Surgeries None recorded. Imaging None recorded. Medication Orders None recorded. Patient TargetsNo targets recorded. Patient Instructions Encounter Date Encounter Id Patient Instructions Last Modified By Organization Details Last Modified Time 05/25/2024 [id number] He was advised against bed rest lasting longer than four days and to continue activities as tolerated. [email or web address] Not available 05/25/2024 10:39:11 06/01/2024 [id number] He was advised against bed rest lasting longer than four days and to continue activities as tolerated. [email or web address] Not available 06/01/2024 11:31:30 08/19/2024 [id number] He was advised against bed rest lasting longer than four days and to continue activities as tolerated. [email or web address] Not available 08/19/2024 13:59:58 08/31/2024 [id number] He was advised against bed rest lasting longer than four days and to continue activities as tolerated. [email or web address] Not available 08/31/2024 10:36:24 09/07/2024 [id number] He was advised against bed rest lasting longer than four days and to continue activities as tolerated. [email or web address] Not available 09/07/2024 10:00:41 Reason for Referral None Reported. Problems Name Problem SNOMED Code Status Onset Date Resolution Date Notes Provider Name and Address Organization Details Recorded Time Lumbosacral spondylosis without myelopathy [id number] Active Guillermo winter MD [address] [facility] , [facility] [address], [place], [address], [place] [facility] 0 11:21:51 Degeneration of lumbar intervertebral disc [id number] Active Guillermo winter MD [address] [facility] , [address], [place], [address], [place] [facility] 0 11:22:00 Compression fracture of lumbar spine [id number] Active Guillermo winter MD [address] , [address], [place], [address], [place] [facility] 0 11:22:13 Problem Notes None recorded. Procedures Surgical History Date Name Laterality Status Provider Name and Address Organization Details Recorded Time 09/08/19 25 Intra-articular Knee Steroid Injection completed Guillermo Mooney MD [address] , [facility] [address], [place], [address], [place] [facility] 09/07/2024 10:00:51 09/01/19 25 Intra-articular Knee Steroid Injection completed Guillermo Mooney MD [address] [facility] , [facility] [address], [place], [address], [place] [facility] 08/31/2024 10:36:36 08/19/19 25 Lumbar Epidural steroid injection under fluoroscopic guidance completed Guillermo Mooney MD [address] , [facility] [address], [place], [address], [place] [facility] 08/19/2024 16:13:49 06/01/20 24 Intra-articular Knee Steroid Injection completed Guillermo Mooney MD [address] [facility] , [address], [place], [address], [place] [facility] 06/01/2024 11:31:40 05/25/20 24 Intra-articular Knee Steroid Injection completed Guillermo Mooney MD [address] [facility] , [address], [place], [address], [place] [facility] 05/25/2024 10:39:20 05/12/20 24 Lumbar Epidural steroid injection under fluoroscopic guidance completed Guillermo Mooney MD [address] [facility] , [address], [place], [address], [place] [facility] 05/12/2024 11:09:51 02/17/20 24 Intra-articular Knee Steroid Injection completed Guillermo Mooney MD [address] [facility] , [address], [facility] [place], [address], [place] [facility] 02/17/2024 10:28:50 02/03/20 24 Intra-articular Knee Steroid Injection completed Guillermo Mooney MD [address] , [address], [place], [address], [place] [facility] 02/03/2024 10:15:19 01/28/20 24 Lumbar Epidural steroid injection under fluoroscopic guidance completed Guillermo Mooney MD [address] [facility] , [address], [facility] [place], [address], [place] [facility] 01/28/2024 13:22:43 10/28/19 24 Intra-articular Knee Steroid Injection completed Guillermo Mooney MD [address] , [address], [facility] [place], [address], [place] [facility] 10/28/2023 09:26:31 10/21/19 24 Intra-articular Knee Steroid Injection completed Guillermo Mooney MD [address] , [address], [facility] [place], [address], [place] [facility] 10/21/2023 11:46:04 10/15/19 24 Lumbar Epidural steroid injection under fluoroscopic guidance completed Guillermo Mooney MD [address] , [address], [place], [address], [place] [facility] 10/15/2023 10:44:39 06/20/20 23 Intra-articular Knee Steroid Injection completed Guillermo Mooney MD [address] , [address], [place], [address], [place] [facility] 06/20/2023 10:37:45 06/05/20 23 Lumbar Epidural steroid injection under fluoroscopic guidance completed Guillermo Mooney MD [address] , [address], [place], [address], [place] [facility] 06/05/2023 11:14:47 02/22/20 23 Intra-articular Knee Steroid Injection completed Guillermo Mooney MD [address] , [address], [place], [address], [place] [facility] 02/21/2023 13:20:30 01/30/20 23 Lumbar Epidural steroid injection under fluoroscopic guidance completed Guillermo Mooney MD [address] , [address], [place], [address], [place] [facility] 01/29/2023 09:26:51 11/13/19 23 Intra-articular Knee Steroid Injection completed Guillermo Mooney MD [address] , [address], [place], [address], [place] [facility] 11/12/2022 11:05:34 09/05/19 23 Lumbar Epidural steroid injection under fluoroscopic guidance completed Guillermo Mooney MD [address] , [address], [place], [address], [place] [facility] 09/04/2022 10:48:48 08/13/19 23 Intra-articular Knee Steroid Injection completed Guillermo Mooney MD [address] , [address], [place], [address], [place] [facility] 08/13/2022 11:33:18 03/15/20 22 Intra-articular Knee Steroid Injection completed Guillermo Mooney MD [address] , [address], [place], [address], [place] [facility] 03/15/2022 10:27:30 02/22/20 22 Lumbar Epidural steroid injection under fluoroscopic guidance completed Guillermo Mooney MD [address] , [address], [place], [address], [place] [facility] 02/21/2022 11:22:29 11/02/19 22 Lumbar Epidural steroid injection under fluoroscopic guidance completed Guillermo Mooney MD [address] , [address], [place], [address], [place] [facility] 11/01/2021 10:24:27 08/16/19 22 Intra-articular Knee Steroid Injection completed Guillermo Mooney MD [address] , [address], [place], [address], [place] [facility] 08/16/2021 13:26:40 08/03/19 22 Intra-articular Knee Steroid Injection completed Guillermo Mooney MD [address] , [address], [place], [address], [place] [facility] 08/03/2021 13:25:10 07/11/19 22 Lumbar Epidural steroid injection under fluoroscopic guidance completed Guillermo Mooney MD [address] , [address], [place], [address], [place] [facility] 07/11/2021 10:51:02 03/16/20 21 Intra-articular Knee Steroid Injection completed Guillermo Mooney MD [address] , [address], [place], [address], [place] [facility] 03/16/2021 11:10:18 02/28/20 21 Intra-articular Knee Steroid Injection completed Guillermo Mooney MD [address] , [address], [place], [address], [place] [facility] 02/27/2021 16:01:09 01/26/20 21 Lumbar Epidural steroid injection under fluoroscopic guidance completed Guillermo Mooney MD [address] , [address], [place], [address], [facility] - [facility] Management 01/25/2021 09:28:37 08/22/19 21 Intra-articular Knee Steroid Injection completed Guillermo Mooney MD [address] [facility] , [address], [place], [address], [facility] - [facility] Management 08/22/2020 15:36:12 08/04/19 21 Intra-articular Knee Steroid Injection completed Guillermo Mooney MD [address] [facility] , [address], [place], [address], [facility] - Pain Management 08/04/2020 09:31:28 07/05/19 21 Lumbar Epidural steroid injection under fluoroscopic guidance completed Guillermo Mooney MD [address] [facility] , [address], [place], [address], [facility] - Pain Management 07/05/2020 09:49:15 Knee arthroscopy/surg nalini completed Guillermo Mooney MD [address] [facility] , [address], [place], [address], [facility] - Pain Management 05/25/2020 11:23:11 Imaging Results None recorded. Procedure Notes None recorded. Medical Equipment None Reported. Allergies No known drug allergies Medications Name Sig Start Date Stop Date Status Note LastModified by Organization Details LastModified Time [facility] eye itch relief drops USE 1 DROP(S) IN BOTH EYES TWICE A DAY NEEDED 04/21 completed Not Available Not Available Not Available eye itch rel ryann 0.025%op 07/05 completed Not Available Not Available Not Available losartan 50 mg tablet TAKE 1 TABLET BY MOUTH EVERY DAY 10/27 completed Not Available Not Available Not Available amoxicillin 500 mg capsule 05/25 completed Not Available Not Available Not Available budesonide 32 mcg/actuati on nasal spray INHALE 2 SPRAYS INTO EACH NOSTRIL ONCE DAILY 03/16 completed Not Available Not Available Not Available clotrimazol e 10 mg kyree 10/09 completed Not Available Not Available Not Available azelastine 0.05 % eye drops INSTILL 1 DROP INTO EACH EYE UP TO TWICE A DAY, NEEDED active Not Available Not Available No t Available nystatin 100,000 unit/mL oral suspension 08/03 completed Not Available Not Available Not Available prednisone 10 mg tablet TAKE 6 TABS DAILY FOR 2 DAYS THEN DECREASE BY 1 TAB EVERY 2 DAYS UNTIL FINISHED 05/03 completed Not Available Not Available Not Available doxycycline hyclate 100 mg capsule TAKE 1 CAPSULE BY MOUTH TWICE A DAY FOR 7 DAYS 02/02 completed Not Available Not Available Not Available ketoconazol e 2 % shampoo USE A SHAMPOO 3 TIMES A WEEK 08/03 completed Not Available Not Available Not Available azithromyci n 250 mg tablet TAKE 2 TABS BY MOUTH ON DAY 1, THEN 1 TAB BY MOUTH ON DAY 2-10 05/03 completed Not Available Not Available Not Available ofloxacin 0.3 % eye drops INSTILL 2 DROPS EYE, LEFT 2 TIMES A DAY,X7 DAYS 11/29 completed Not Available Not Available Not Available tizanidine 4 mg tablet 05/25 completed Not Available Not Available Not Available fluconazole 150 mg tablet 07/05 completed Not Available Not Available Not Available benzonatate 200 mg capsule TAKE 1 CAPSULE BY MOUTH 3 TIMES A DAY NEEDED FOR COUGH FOR 7 DAYS 05/03 completed Not Available Not Available Not Available ketotifen 0.025 % (0.035 %) eye drops APPLY 1 DROP TO AFFECTED EYE(S) 2 TIMES DAILY NEEDED (ALLERGIC CONJUCTIV ITIS). active Not Available Not Available No t Available meloxicam 15 mg tablet TAKE 1 TABLET BY MOUTH EVERY DAY 08/04 completed Not Available Not Available Not Available prednisone 20 mg tablet 05/12 completed Not Available Not Available Not Available simvastatin 10 mg tablet TAKE 1 TABLET BY MOUTH EVERY DAY AT BEDTIME FOR 180 DAYS 08/31 completed Not Available Not Available Not Available prednisone 5 mg tablet PLEASE SEE ATTACHED FOR DETAILED DIRECTION S 10/14 completed Not Available Not Available Not Available metronidazo le 250 mg tablet TAKE 2 TABLETS (500 MG TOTAL) BY MOUTH 3 (THREE) TIMES A DAY FOR 10 DAYS. 08/13 completed Not Available Not Available Not Available fexofenadin e 180 mg tablet TAKE 1 TABLET BY MOUTH EVERY DAY active Not Available Not Available No t Available ciprofloxac in 250 mg tablet TAKE 2 TABLETS BY MOUTH 2 TIMES A DAY FOR 10 DAYS. 11/29 completed Not Available Not Available Not Available ciprofloxac in 500 mg tablet TAKE 1 TABLET BY MOUTH EVERY 12 HOURS FOR 7 DAYS 02/02 completed Not Available Not Available Not Available peg-electro lyte solution 420 gram oral solution 02/14 completed Not Available Not Available Not Available aspirin 81 mg tablet,lela yed release TAKE 1 TABLET BY MOUTH EVERY DAY 05/12 completed Not Available Not Available Not Available tramadol 50 mg tablet TAKE 1 TO 2 TABLETS BY MOUTH EVERY 4 HOURS NEEDED FOR MODERATE PAIN. DO NOT EXCEED 8 TABLETS (400MG) PER DAY. 02/21 completed Not Available Not Available Not Available triamcinolo ne acetonide 0.1 % topical cream 05/25 completed Not Available Not Available Not Available betamethaso ne, augmented 0.05 % lotion APPL 15 DROPS TO SCALP DAILY 03/16 completed Not Available Not Available Not Available amoxicillin 875 mg tablet 875 MG ORALLY EVERY 12 HOURS 08/31 completed Not Available Not Available Not Available ciprofloxac in 0.3 % eye drops INSTILL 4 DROPS TWICE A DAY INTO AFFECTED EAR FOR 10 DAYS 04/21 completed Not Available Not Available Not Available erythromyci n 5 mg/gram (0.5 %) eye ointment APPLY TO AFFECTED EYE(S) 3 TIMES PER DAY FOR 7 DAYS 11/01 completed Not Available Not Available Not Available hydrochloro thiazide 12.5 mg capsule TAKE 1 CAPSULE BY MOUTH DAILY FOR 60 DAYS. 10/20 completed Not Available Not Available Not Available docusate sodium 100 mg capsule TAKE 1 CAPSULE BY MOUTH TWICE A DAY active Not Available Not Available No t Available gabapentin 300 mg capsule 05/25 completed Not Available Not Available Not Available omeprazole 20 mg capsule,del ayed release TAKE 1 CAPSULE BY MOUTH 1 TIME EACH DAY. DO NOT CRUSH OR CHEW. active Not Available Not Available No t Available gabapentin 100 mg capsule TAKE 1 CAPSULE BY MOUTH EVERYDAY AT BEDTIME 01/25 completed Not Available Not Available Not Available azelastine 137 mcg (0.1 %) nasal spray 01/25 completed Not Available Not Available Not Available ibuprofen 600 mg tablet 03/16 completed Not Available Not Available Not Available scopolamine 1 mg over 3 days transdermal patch APPLY 1 PATCH TO THE BACK OF THE LEFT EAR EVERY 72 HOURS. REMOVE OLD PATCH BEFORE APPLYING NEW ONE. DISCONTIN UE WHEN NAUSEA CONTROLLE D. 02/21 completed Not Available Not Available Not Available ondansetron 4 mg disintegrat ing tablet PLACE 1 TABLET (4 MG TOTAL) UNDER THE TONGUE EVERY 4 HOURS NEEDED FOR NAUSEA 02/21 completed Not Available Not Available Not Available losartan 100 mg tablet TAKE 1 TABLET BY MOUTH 1 TIME EACH DAY. active Not Available Not Available No t Available fluticasone propionate 50 mcg/actuati on nasal spray,suspe nsion INSTILL 2 SPRAYS IN EACH NOSTRIL ONCE TO TWICE A DAY active Not Available Not Available No t Available amoxicillin 875 mg-potassiu m clavulanate 125 mg tablet TAKE 1 TABLET BY MOUTH TWICE A DAY X14 DAYS 02/02 completed Not Available Not Available Not Available tobramycin 0.3 %-dexametha sone 0.1 % eye drops,suspe nsion INSTILL 2 DROPS IN THE AFFECTED EAR TWICE DAILY 05/03 completed Not Available Not Available Not Available oxycodone 5 mg tablet TAKE 1 TABLET BY MOUTH EVERY 4 HOURS NEEDED SEVERE PAIN 10/20 completed Not Available Not Available Not Available cholecalcif mauricio (vitamin D3) 25 mcg (1,000 unit) capsule TAKE 1 CAPSULE BY MOUTH EVERY DAY active Not Available Not Available No t Available enoxaparin 40 mg/0.4 mL subcutaneou s syringe INJECT THE CONTENTS OF 1 SYRINGE SUBCUTANE OUSLY EVERY DAY 02/21 completed Not Available Not Available Not Available Vitamin D3 25 mcg (1,000 unit) tablet TAKE 1 TABLET BY MOUTH EVERY DAY 03/16 completed Not Available Not Available Not Available ciprofloxac in 0.3 %-dexametha sone 0.1 % ear drops,suspe nsion INSTILL 4 DROPS INTO THE LEFT EAR TWICE DAILY DIRECTED FOR 10 DAYS 05/03 completed Not Available Not Available Not Available cyanocobala min (vitamin B-12) 11/29 completed Not Available Not Available Not Available mometasone 0.1 % topical solution 02/21 completed Not Available Not Available Not Available GaviLyte-G 236 gram-22.74 gram-6.74 gram-5.86 gram oral solution TAKE 8 OUNCE BY MOUTH DIRECTED DRINK A GLASS EVERY 10-15 MINUTES 02/02 completed Not Available Not Available Not Available Natural Fiber Supplement (aspartame) 3.4 gram oral powder packet TAKE 1 PACKET DISSOLVED IN WATER ONCE A DAY 05/25 completed Not Available Not Available Not Available Purelax 17 gram/dose oral powder Take every day by oral route as needed. 05/03 completed Not Available Not Available Not Available Combivent Respimat 20 mcg-100 mcg/actuati on solution for inhalation INHALE 1 PUFF UP TO 4 TIMES A DAY NEEDED active Not Available Not Available No t Available Incruse Ellipta 62.5 mcg/actuati on powder for inhalation 07/05 completed Not Available Not Available Not Available Breo Ellipta 200 mcg-25 mcg/dose powder for inhalation INHALE 1 PUFF DAILY 08/04 completed Not Available Not Available Not Available Dupixent 300 mg/2 mL subcutaneou s syringe 10/09 completed Not Available Not Available Not Available Fasenra 30 mg/mL subcutaneou s syringe 05/25 completed Not Available Not Available Not Available Xolair 75 mg/0.5 mL subcutaneou s syringe active Not Available Not Available No t Available Xolair 150 mg/mL subcutaneou s syringe active Not Available Not Available No t Available Dupixent 300 mg/2 mL subcutaneou s pen injector 10/09 completed Not Available Not Available Not Available Trelegy Ellipta 200 mcg-62.5 mcg-25 mcg powder for inhalation INHALE ONE PUFF DAILY active Not Available Not Available No t Available Paxlovid 300 mg (150 mg x 2)-100 mg tablets in a dose pack TAKE 2 TABLETS (NIRMATRE LVIR) AND TAKE 1 TABLET (RITONAVI R) BY MOUTH TWICE A DAY FOR 5 DAYS active Not Available Not Available No t Available Vitals Date Recorded Body height Heart rate Oxygen saturation Oxygen saturation in Arterial blood by Pulse oximetry Pain severity - 0-10 verbal numeric rating [Score] - Reported Systolic blood pressure Diastolic blood pressure Provider Name and Address Organization Details Last Updated DateTime 4 180.34 cm 68 /min 98 % 98 % 7 150 mm[Hg] 84 mm[Hg] Betty Arthur [facility] 4 09:40:30 Date Recorded Body height Heart rate Oxygen saturation Oxygen saturation in Arterial blood by Pulse oximetry Pain severity - 0-10 verbal numeric rating [Score] - Reported Systolic blood pressure Diastolic blood pressure Provider Name and Address Organization Details Last Updated DateTime 4 180.34 cm 71 /min 98 % 98 % 5 155 mm[Hg] 80 mm[Hg] Betty Arthur [place] [facility] 4 10:37:41 Date Recorded Body height Heart rate Oxygen saturation Oxygen saturation in Arterial blood by Pulse oximetry Pain severity - 0-10 verbal numeric rating [Score] - Reported Systolic blood pressure Diastolic blood pressure Provider Name and Address Organization Details Last Updated DateTime 5 180.34 cm 64 /min 96 % 96 % 7 160 mm[Hg] 67 mm[Hg] Betty Arthur [facility] 5 11:39:17 Date Recorded Body height Heart rate Oxygen saturation Oxygen saturation in Arterial blood by Pulse oximetry Pain severity - 0-10 verbal numeric rating [Score] - Reported Systolic blood pressure Diastolic blood pressure Provider Name and Address Organization Details Last Updated DateTime 5 180.34 cm 62 /min 98 % 98 % 5 148 mm[Hg] 80 mm[Hg] Betty Arthur [facility] 5 10:09:01 Date Recorded Body height Heart rate Oxygen saturation Oxygen saturation in Arterial blood by Pulse oximetry Pain severity - 0-10 verbal numeric rating [Score] - Reported Systolic blood pressure Diastolic blood pressure Provider Name and Address Organization Details Last Updated DateTime 5 180.34 cm 93 /min 97 % 97 % 6 141 mm[Hg] 88 mm[Hg] Betty Arthur [facility] 5 09:37:08 Social History Question Answer Notes LastModified by Organizat ion Details LastModified Time Tobacco Smoking Status Former Smoker Cas domínguez [place] [facility] 05/25/2020 10:15:20 Which Illicit Or Recreational Drugs Have You Used? None Information not available 05/25/2020 Live Alone Or With Others? With Others Son [email or web address] Information not available 05/25/2020 Marital Status Informati on not available 05/25/2020 Sex: Unknown Functional Status Question Answer Note LastModified by Organizat ion Details LastModified Time What is your level of alcohol consumption? Occasional Information not available 05/25/2020 What is your occupation? disabled Information not available 05/25/2020 Do you or have you ever used e-cigarettes or vape? Never used electronic cigarettes Information not available 05/25/2020 Mental Status None recorded. Family History Relationship Description Onset Age of this Age Resolved Age Notes LastModified by Organization Details LastModified Time Maternal Aunt Arthritis [email or web address] No t available 05/25/2020 11:22:42 Medical History Condition Response Coronary Artery Disease N Gout N Neuropathy/Neuralgia N Kidney Stones N Hyperthyroidism N Depression N COPD N Hypothyroidism N Hepatitis C N Migrane N Anxiety Disorder N Diabetes Y Seizures/Epilepsy N Arthritis Y Hyperlipidemia N Cancer N Stroke N Asthma Y HIV/AIDS N Headache Y Bipolar Disorder N High Cholesterol N GERD/Reflux Y Liver Disease N Pulmonary Embolism N Fibromyalgia N Irritable Bowel Syndrome N Hypertension N Osteoporosis N Kidney Disease N Immunizations Vaccine Type Date Status Note Provider Nam e and Address Organization Details Recorded Time influenza, unspecified formulation 05/30/2023 completed Ernestina domínguez [place] - Pain Management 06/20/2023 09:35:32 Past Encounters Encounter ID Performer Location Encounter Start Date Encounter Closed Date Diagnosis/Indication Diagnosis SNOMED-CT Code Diagnosis ICD10 Code Diagnosis Note [id number] Guillermo Mooney MD PAIN OFFICE [address] [place] [address] 05/25/2020 09:48:53 05/30/2020 11:51:12 Compression fracture of lumbar spine 512750777 M48.56XA Degenerati on of lumbar intervertebral disc 58677202 M51.36 Lumbosacra l spondylosis without myelopathy 44093609 M47.817 [id number] Guillermo Mooney MD PAIN OFFICE [email or web address] [place] [address] 07/05/2020 09:22:31 07/05/2020 13:33:45 Compression fracture of lumbar spine 952212642 M48.56XA Degenerati on of lumbar intervertebral disc 73288175 M51.36 Lumbosacra l spondylosis without myelopathy 98825454 M47.817 Bilateral osteoarthritis of knees 3492477050 75503 M17.0 Bilateral knee pain 1187 492987 9000143 M25.561 M25.562 [id number] Guillermo Mooney MD [facility] [address] [place] [address] 08/04/2020 08:50:45 08/04/2020 09:47:10 Bilateral osteoarthritis of knees 5722730240 75014 M17.0 [id number] Guillermo Mooney MD [facility] [address] [place] [address] 08/22/2020 14:52:55 08/22/2020 15:39:49 Bilateral osteoarthritis of knees 7933029547 63170 M17.0 [id number] Guillermo Mooney MD [facility] [address] [email or web address] [address] 01/25/2021 08:19:33 01/25/2021 13:11:46 Compression fracture of lumbar spine 619325825 M48.56XA Degenerati on of lumbar intervertebral disc 66081032 M51.36 Lumbosacra l spondylosis without myelopathy 42705118 M47.817 Bilateral osteoarthritis of knees 7594501992 62260 M17.0 Bilateral knee pain 1187 182525 1590287 M25.561 M25.562 [id number] Guillermo Mooney MD [facility] [address] [email or web address] [address] 02/27/2021 13:26:38 02/27/2021 16:02:42 Bilateral osteoarthritis of knees 4700931466 61597 M17.0 [id number] Guillermo Mooney MD [facility] [address] [place] [address] 03/16/2021 09:23:57 03/16/2021 13:27:51 Bilateral osteoarthritis of knees 1878127749 65927 M17.0 Degenerati on of lumbar intervertebral disc 58713644 M51.36 Lumbosacra l radiculopathy 3620154 M54.17 [id number] Guillermo Mooney MD [facility] [address] [place] [address] 04/21/2021 09:31:53 04/21/2021 12:02:57 Compression fracture of lumbar spine 446262287 M48.56XA Degenerati on of lumbar intervertebral disc 00234069 M51.36 Lumbosacra l spondylosis without myelopathy 89887413 M47.817 [id number] Guillermo Mooney MD [facility] [address] [place] [address] 07/11/2021 10:26:08 07/11/2021 13:13:15 Compression fracture of lumbar spine 067063329 M48.56XA Degenerati on of lumbar intervertebral disc 19496368 M51.36 Lumbosacra l spondylosis without myelopathy 40333011 M47.817 Bilateral osteoarthritis of knees 1647528224 36808 M17.0 Bilateral knee pain 1187 662941 6903241 M25.561 M25.562 [id number] Guillermo Mooney MD [facility] [address] [place] [address] 08/03/2021 11:30:04 08/03/2021 13:26:43 Bilateral osteoarthritis of knees 5920728431 92625 M17.0 [id number] Guillermo Mooney MD [facility] [address] [place] [address] 08/16/2021 13:04:29 08/16/2021 13:29:40 Bilateral osteoarthritis of knees 2386308167 12637 M17.0 Degenerati on of lumbar intervertebral disc 12920251 M51.36 Lumbosacra l radiculopathy 3232409 M54.17 [id number] Guillermo Mooney MD [facility] [address] [place] [address] 10/09/2021 09:04:11 10/09/2021 10:41:26 Compression fracture of lumbar spine 515099147 M48.56XA Degenerati on of lumbar intervertebral disc 63565542 M51.36 Lumbosacra l spondylosis without myelopathy 44273343 M47.817 [id number] Giullermo Mooney MD [facility] [email or web address] [facility] [place] [address] 11/01/2021 09:52:03 11/01/2021 10:27:14 Compression fracture of lumbar spine 572734437 M48.56XA Degenerati on of lumbar intervertebral disc 23634740 M51.36 Lumbosacra l spondylosis without myelopathy 46028365 M47.817 Bilateral osteoarthritis of knees 5024037087 86404 M17.0 Bilateral knee pain 1187 126836 4176209 M25.561 M25.562 [id number] Guillermo Mooney MD PAIN OFFICE [email or web address] [facility] [place] [address] 02/14/2022 13:28:13 02/14/2022 16:25:10 Compression fracture of lumbar spine 102785212 M48.56XA Degenerati on of lumbar intervertebral disc 29506954 M51.36 Lumbosacra l spondylosis without myelopathy 70505998 M47.817 [id number] Guillermo Mooney MD PAIN OFFICE [address] [facility] [place] [place] [address] 02/21/2022 10:58:54 02/21/2022 11:26:39 Compression fracture of lumbar spine 908156602 M48.56XA Degenerati on of lumbar intervertebral disc 66011655 M51.36 Lumbosacra l spondylosis without myelopathy 59070700 M47.817 Bilateral osteoarthritis of knees 0651788151 82940 M17.0 Bilateral knee pain 1187 392147 0421464 M25.561 M25.562 Lumbosacra l radiculopathy 7296405 M54.17 [id number] Guillermo Mooney MD PAIN OFFICE [email or web address] [facility] [place] [address] 03/15/2022 09:00:13 03/15/2022 11:15:20 Bilateral osteoarthritis of knees 4567616481 31946 M17.0 [id number] Guillermo Mooney MD [facility] [email or web address] [place] [address] 05/21/2022 09:28:52 05/21/2022 13:50:12 Bilateral osteoarthritis of knees 4912750867 92018 M17.0 [id number] Guillermo Mooney MD [facility] [address] [facility] [place] [address] 06/14/2022 11:02:32 06/14/2022 11:37:04 Compression fracture of lumbar spine 734416959 M48.56XA Degenerati on of lumbar intervertebral disc 44184295 M51.36 Lumbosacra l radiculopathy 5019993 M54.17 [id number] Guillermo Mooney MD [facility] [address] [place] [address] [place] [address] 08/13/2022 11:06:18 08/13/2022 11:35:44 Bilateral osteoarthritis of knees 5890689677 98643 M17.0 [id number] Guillermo Mooney MD [facility] [address] [place] [address] 09/04/2022 09:51:08 09/04/2022 10:53:31 Compression fracture of lumbar spine 554487244 M48.56XA Degenerati on of lumbar intervertebral disc 30821152 M51.36 Lumbosacra l spondylosis without myelopathy 16104230 M47.817 Bilateral osteoarthritis of knees 0656555234 93914 M17.0 Bilateral knee pain 1187 752192 2335929 M25.561 M25.562 Lumbosacra l radiculopathy 4291114 M54.17 [id number] Guillermo Mooney MD [facility] [address] [place] [address] 11/12/2022 09:30:15 11/12/2022 11:16:25 Degeneration of lumbar intervertebral disc 02016348 M51.36 Compressio n fracture of lumbar spine 631443564 M48.56XA Lumbosacra l spondylosis without myelopathy 69195836 M47.817 Bilateral osteoarthritis of knees 8384171225 87261 M17.0 [id number] Guillermo Mooney MD [facility] [email or web address] [place] [address] 11/29/2022 10:48:32 11/30/2022 12:42:54 Degeneration of lumbar intervertebral disc 18044165 M51.36 Compressio n fracture of lumbar spine 976469541 M48.56XA Lumbosacra l radiculopathy 9108662 M54.17 [id number] Guillermo Mooney MD [facility] [address] [place] [address] 01/29/2023 08:57:09 01/29/2023 10:51:46 Compression fracture of lumbar spine 619255684 M48.56XA Degenerati on of lumbar intervertebral disc 32442553 M51.36 Lumbosacra l spondylosis without myelopathy 50013342 M47.817 Bilateral osteoarthritis of knees 9070618539 85983 M17.0 Bilateral knee pain 1187 629989 8780781 M25.561 M25.562 Lumbosacra l radiculopathy 5754838 M54.17 [id number] Guillermo Mooney MD [facility] [address] [place] [address] 02/21/2023 11:21:32 02/21/2023 13:22:01 Degeneration of lumbar intervertebral disc 13863006 M51.36 Compressio n fracture of lumbar spine 072772679 M48.56XA Lumbosacra l spondylosis without myelopathy 86302546 M47.817 Bilateral osteoarthritis of knees 3324135048 56221 M17.0 [id number] Guillermo Mooney MD [facility] [address] [place] [address] 05/03/2023 09:21:23 05/03/2023 11:06:25 Degeneration of lumbar intervertebral disc 73684275 M51.36 Compressio n fracture of lumbar spine 008926687 M48.56XA Lumbosacra l radiculopathy 7288046 M54.17 [id number] Guillermo Mooney MD [facility] [address] [facility] [place] [address] 06/05/2023 09:50:34 06/05/2023 14:24:25 Compression fracture of lumbar spine 606175225 M48.56XA Degenerati on of lumbar intervertebral disc 15367189 M51.36 Lumbosacra l spondylosis without myelopathy 29065755 M47.817 Bilateral osteoarthritis of knees 9441147464 49465 M17.0 Bilateral knee pain 1187 870756 1500916 M25.561 M25.562 Lumbosacra l radiculopathy 1234187 M54.17 Lumbar radiculopathy 128 879330 M54.16 [id number] Guillermo Mooney MD [facility] [address] [place] [address] 06/20/2023 09:24:19 06/20/2023 14:13:10 Degeneration of lumbar intervertebral disc 01167405 M51.36 Compressio n fracture of lumbar spine 623434104 M48.56XA Lumbosacra l spondylosis without myelopathy 41833702 M47.817 Bilateral osteoarthritis of knees 8826594730 34454 M17.0 [id number] Guillermo Mooney MD PAIN OFFICE [address] [place] [address] 10/15/2023 10:24:00 10/15/2023 15:36:06 Compression fracture of lumbar spine 159810237 M48.56XA Degenerati on of lumbar intervertebral disc 58952250 M51.36 Lumbosacra l spondylosis without myelopathy 77580946 M47.817 Bilateral osteoarthritis of knees 1578958402 79709 M17.0 Bilateral knee pain 1187 548276 4443449 M25.561 M25.562 Lumbosacra l radiculopathy 4068100 M54.17 Lumbar radiculopathy 128 713395 M54.16 [id number] Guillermo Mooney MD PAIN OFFICE [address] [place] [address] 10/21/2023 11:22:28 10/21/2023 11:49:28 Compression fracture of lumbar spine 497956295 M48.56XA Degenerati on of lumbar intervertebral disc 19883004 M51.36 Lumbosacra l spondylosis without myelopathy 67407153 M47.817 Bilateral osteoarthritis of knees 5114949176 48185 M17.0 Bilateral knee pain 1187 284126 1058545 M25.561 M25.562 Lumbosacra l radiculopathy 0549982 M54.17 Lumbar radiculopathy 128 784228 M54.16 [id number] Guillermo Mooney MD PAIN OFFICE [address] [place] [address] 10/28/2023 08:51:36 10/28/2023 13:57:20 Osteoarthritis of left knee joint 7633256266 60814 M17.12 [id number] Guillermo Mooney MD [facility] [address] [place] [address] 01/28/2024 13:03:06 01/28/2024 16:00:16 Compression fracture of lumbar spine 206457373 M48.56XA Degenerati on of lumbar intervertebral disc 80591787 M51.36 Lumbosacra l spondylosis without myelopathy 82150502 M47.817 Bilateral osteoarthritis of knees 9109110444 33328 M17.0 Bilateral knee pain 1187 491323 8960855 M25.561 M25.562 Lumbosacra l radiculopathy 2676047 M54.17 Lumbar radiculopathy 128 919164 M54.16 [id number] Guillermo Mooney MD PAIN OFFICE [address] [place] [address] 02/03/2024 09:32:25 02/03/2024 10:25:09 Bilateral osteoarthritis of knees 7468105767 03379 M17.0 Bilateral knee pain 1187 935869 1991290 M25.561 M25.562 Osteoarthr itis of right knee joint 3235838720 34338 M17.11 [id number] Guillermo Mooney MD PAIN OFFICE [address] [place] [address] 02/17/2024 09:56:58 02/17/2024 16:50:52 Osteoarthritis of left knee joint 1950539649 59587 M17.12 [id number] Guillermo Mooney MD [facility] [address] [place] [address] 05/12/2024 10:03:54 05/12/2024 16:16:05 Compression fracture of lumbar spine 785208719 M48.56XA Degenerati on of lumbar intervertebral disc 23585882 M51.362 Lumbosacra l spondylosis without myelopathy 18694715 M47.817 Bilateral osteoarthritis of knees 0016215721 13786 M17.0 Bilateral knee pain 1187 480391 6165513 M25.561 M25.562 Lumbosacra l radiculopathy 8395497 M54.17 Lumbar radiculopathy 128 581263 M54.16 [id number] Guillermo Mooney MD [facility] [address] [place] [address] 05/25/2024 09:32:14 05/25/2024 16:50:40 Bilateral osteoarthritis of knees 4005744417 49703 M17.0 Bilateral knee pain 1187 498249 4971387 M25.561 M25.562 Osteoarthr itis of right knee joint 2089462376 63003 M17.11 [id number] Guillermo Mooney MD [facility] [address] [place] [address] 06/01/2024 10:32:24 06/01/2024 11:35:08 Osteoarthritis of left knee joint 3317982320 67588 M17.12 [id number] Guillermo Mooney MD [facility] [address] [place] [address] 08/19/2024 11:25:00 08/19/2024 16:42:20 Degeneration of lumbar intervertebral disc 95745247 M51.362 Compressio n fracture of lumbar spine 711229176 M48.56XA Lumbosacra l spondylosis without myelopathy 00813915 M47.817 Bilateral osteoarthritis of knees 8389484781 53015 M17.0 Bilateral knee pain 1187 039516 2989533 M25.561 M25.562 Lumbosacra l radiculopathy 8153216 M54.17 Lumbar radiculopathy 128 733119 M54.16 [id number] Guillermo Mooney MD [facility] [address] [place] [address] 08/31/2024 09:57:24 08/31/2024 10:54:07 Osteoarthritis of left knee joint 2418413955 17285 M17.12 [id number] Guillermo Mooney MD [facility] [address] [place] [address] 09/07/2024 09:30:31 09/07/2024 14:18:01 Bilateral osteoarthritis of knees 2247482531 61316 M17.0 Bilateral knee pain 1187 372992 7152660 M25.561 M25.562 Osteoarthr itis of right knee joint 0549333674 32459 M17.11 Health Concerns Section Related Observation LastModified by Organization Detai ls LastModified Time None Recorded Concern Status LastModified by Organization Details LastModified Time None Recorded Advance Directives Directive None Recorded Payers Encounter Date Sequence Insurance Name Policy Number Policy Turk Covered Member ID Turk Member ID Guarantor Name 05/25/2024 1 [place] [employer] Jovany Phillips [id number] Jovany Phillips 05/25/2024 2 [place] Jovany Phillips [id number] Jovany Phillips 06/01/2024 1 [place] [employer] Jovany Phillips [id number] Jovany Phillips 06/01/2024 2 [place] Jovany Phillips [id number] Jovany Phillips 08/19/2024 1 [place] [employer] Jovany Phillips [id number] Jovany Phillips 08/19/2024 2 [place] Jovany Phillips [id number] Jovany Phillips 08/31/2024 1 [place] [employer] Jovany Phillips [id number] Jovany Phillips 08/31/2024 2 [place] Jovany Phillips [id number] Jovany Phillips 09/07/2024 1 [place] [facility] Jovany Gao Alan [id number] Jovany Phillips 09/07/2024 2 [facility] Jovany Gao Alan [id number] Jovany Alan Notes Date Note Type Note Provider Name and Address Organization Details Recorded Time 05/25/2024 text/html He is here for h is right knee steroid injection under ultrasound guidance Guillermo Mooney MD [address] [facility] , [address], [place], [address], [place] [facility] 05/25/2024 16:58:23 06/01/2024 text/html He is here for left knee steroid injections under ultrasound guidance Guillermo Mooney MD [address] [facility] , [address], [place], [address], [place] [facility] 06/01/2024 11:35:58 08/19/2024 text/html He is here today for a lumbar epidural steroid injection under fluoroscopic guidance.He is also complaining of right knee pain. He had surgery to his left knee . He is considering left total knee replacement with Dr. Brendan Moonye MD [address] [facility] , [address], [place], [address], [place] [facility] 08/19/2024 16:44:46 08/31/2024 text/html He is here for left knee steroid injections under ultrasound guidance Guillermo Mooney MD [address] [facility] , [address], [place], [address], [place] [facility] 08/31/2024 11:01:15 09/07/2024 text/html He is here for h is right knee steroid injection under ultrasound guidance Guillermo Mooney MD [address] [facility] , [address], [place], [address], [place] [facility] 09/07/2024 14:20:45
--- OUTSIDE RECORDS SUMMARY | 2024-11-11 10:15 | XMS_ITS | Clinical Summary ---
Author Organization [facility] [address] [facility] Address [address] [place] [address] Phone Care Team Providers Care Street Contractor Name Role Phone Lexii Solano MD Primary Care Pr ovider Allergies Active Allergy Reactions Criticality Noted Date Comments House Dust Mite 12/29/2013 Medications cholecalciferol (VITAMIN D-3) 50 mcg (2,000 unit) capsule Take 1 capsule (2,000 Units total) by mouth 1 (one) time each day. 023 Active fexofenadine (SYBIL) 180 mg tablet Take 1 tablet (180 mg total) by mouth 1 (one) time each day. 024 Active ipratropium-albutero L (Combivent Respimat) 20-100 mcg/actuation inhaler INHALE 1 PUFF UP TO 4 TIMES A DAY NEEDED 023 Active polyethylene glycol (MIRALAX) 17 gram packet Take 1 Packet by mouth daily as needed for Constipation . 023 Active FLUTICASONE FUROATE NASL Administer into affected nostril(s). Active OMALIZUMAB SUBQ Inject under the skin. Active fluticasone-umeclidi nium-vilanterol (Trelegy Ellipta) 200-62.5-25 mcg inhaler INHALE 1 PUFF INTO THE LUNGS ONCE DAILY 021 Active losartan (COZAAR) 100 mg tabletIndications:Pr imary hypertension Take 1 tablet (100 mg total) by mouth 1 (one) time each day. 90 each 1 024 2024 Active docusate sodium (COLACE) 100 mg capsuleIndications:I belen deficiency anemia, unspecified iron deficiency anemia type Take 1 capsule (100 mg total) by mouth 1 (one) time each day. 90 each 1 025 2024 Active ketotifen fumarate (ZADITOR) 0.035 % ophthalmic solution Administer 1 drop into both eyes 1 (one) time each day. 022 Active nitroglycerin (NITROSTAT) 0.[address] 1 tablet (0.4 mg total) under the tongue every 5 (five) minutes if needed for chest pain. Active atorvastatin (LIPITOR) 80 mg tablet Take 1 tablet (80 mg total) by mouth at bedtime. at bedtime 90 tablet 1 Active Brilinta 90 mg tablet Take 1 tablet (90 mg total) by mouth 2 (two) times a day. 180 tablet Active carvediloL (COREG) 3.125 mg tablet Take 1 tablet (3.125 mg total) by mouth 2 (two) times a day. 180 tablet 1 025 Active ferrous sulfate 325 mg (65 mg iron) EC tabletIndications:Ir on deficiency anemia, unspecified iron deficiency anemia type Take 1 tablet (325 mg total) by mouth every other day. Do not crush, chew, or split. 90 each 025 Active blood sugar diagnostic (FreeStyle Lite Strips) test strip USE TO CHECK FASTING GLUCOSE ONCE A DAY 300 strip 1 Active freestyle (FreeStyle Lancets) 28 gauge lancets USE TO CHECK FASTING GLUCOSE ONCE A DAY 100 each 1 025 Active blood-glucose meter kit USE DAILY OR DIRECTED FOR MONITORING OF DIABETES. 1 kit 025 Active omeprazole (PriLOSEC) [address] capsuleIndications:G astroesophageal reflux disease without esophagitis TAKE 1 CAPSULE BY MOUTH 1 TIME EACH DAY. DO NOT CRUSH OR CHEW. 90 capsule 1 025 Active aspirin 81 mg EC tabletIndications:Ab normal electrocardiogram (ECG) (EKG) TAKE 1 TABLET BY MOUTH EVERY DAY 90 tablet 1 025 Active omeprazole (PriLOSEC) [address] capsuleIndications:G astroesophageal reflux disease without esophagitis Take 1 capsule (20 mg total) by mouth 1 (one) time each day. Do not crush or chew. 90 each 1 024 2024 Discontinued glipiZIDE (GLUCOTROL) 5 mg tabletIndications:Ty pe II diabetes mellitus with neurological manifestations ([facility] V24, [facility] V28) Take 1 tablet (5 mg total) by mouth 1 (one) time each day. 90 each 025 2024 Discontinued(S elder effects) Active Problems Problem Noted Date Diagnosed Date NSTEMI (non-ST elevated myoc ardial infarction) ([facility] V24, [facility] V28) 09/23/2024 Calcaneal spur of foot, left 06/17/2024 Assessment & Plan (06/17/2024 10:21 AM EST): As above Orders: Ambulatory referral to Podiatry; Future Primary osteoarthritis of left foot 06/17/2024 Assessment & Plan (06/17/2024 10:21 AM EST): As above Orders: Ambulatory referral to Podiatry; Future History of hemorrhoidectomy 06/17/2024 Assessment & Plan (06/17/2024 10:21 AM EST): Notes he feels that after he has a bowel movement since he had the hemorrhoidectomy, he is not able to get completely clean and has to take a shower. He would like to see Dr. Hernández for this Orders: Ambulatory referral to General Surgery; Future Osteopenia 06/17/2024 Assessment & Plan (06/17/2024 10:21 AM EST): Continue vitamin D daily Orders: Vitamin D 25 hydroxy; Future Allergic conjunctivitis of both eyes 11/27/2023 Assessment & Plan (06/17/2024 10:21 AM EST): Continue ketotifen eye drops Chronic idiopathic constipation 11/27/2023 Assessment & Plan (06/17/2024 10:21 AM EST): Stable. Continue docusate Dilatation of thoracic aorta (CMS/HCC V24) 10/09 LAFB (left anterior fascicular block) 12/24/2022 Type II diabetes mellitus wi th renal manifestations (CMS/HCC V24, CMS/HCC V28) 09/27/2022 Assessment & Plan (06/17/2024 10:21 AM EST): Not on meds. Will update labs. Last A1c was 5.7 in August Orders: Microalbumin creatinine urine ratio; Future Hemoglobin A1c; Future Comprehensive metabolic panel; Future Hypertension 09/25/2022 Assessment & Plan (06/17/2024 10:21 AM EST): Stable. Continue losartan 100 mg daily Orders: losartan (COZAAR) 100 mg tablet; Take 1 tablet (100 mg total) by mouth 1 (one) time each day. Obesity (BMI 30.0-34.9) 09/25/2022 DJD (degenerative joint disease) of knee 021 Overview (05/13/2024): SV pain management Tubular adenoma 02/24/2021 Overview (05/13/2024): 02/18 tubular adenoma Assessment & Plan (06/17/2024 10:21 AM EST): Due for colonoscopy in January 2025 per [facility] GI. Orders: Ambulatory referral to Gastroenterology; Future Carpal tunnel syndrome 09/11/2020 Overview (05/13/2024): right Type II diabetes mellitus wi th neurological manifestations (CMS/HCC V24, CMS/HCC V28) 03/09/2020 Polyneuropathy 03/04/2019 Obstructive sleep apnea 02/16/2019 Overview (05/13/2024): UNTREATED (August 2022) [facility] Polysomnogram: Date 02/10/2019; Wt 230#; BMI 32; SE 86%; SM 87%; REM 15%; RDI 18 (AHI 14), REM (RDI 3 - AHI 3), Central apneas 18; Obstructive apneas 41; Mixed apneas 2; hypopneas 36; RERAs 27; average oxygen saturation 96% (lowest 85% - without saturations <88% for 5% or more of study); PLMs 2. [facility] Polysomnogram treatment study. Date 04/05/2019. Wt 237#; BMI 33; SE 83 % SM 86 %; spent 13 % of the study in REM. On CPAP @ 6; RDI 1.8 (AHI 1.8), Central apneas 0; Obstructive apneas 0; Mixed apneas 0; hypopneas 9; RERAs 0; and, average oxygen saturation was 95%. For the entire study, PLMs ~0. Prestudy ESS 3; 4/4 RLS symptoms. - Obstructive Sleep Apnea - mild; mostly obstructive apneas with hypopneas but frequent central apneas; without sleep related hypoventilation by 2019 polysomnogram. Assessment & Plan (06/17/2024 10:21 AM EST): Strongly counseled on the importance of treatment for sleep apnea to prevent negative outcomes such as worsening hypertension, heart attack, stroke, dementia. He Expressed understanding. He is referred to pulmonology. Orders: Ambulatory referral to Pulmonology; Future Hyperlipidemia 02/19/2018 Assessment & Plan (06/17/2024 10:21 AM EST): Not on statin. Will update labs Orders: Lipid panel with reflex to direct LDL; Future Comprehensive metabolic panel; Future Lung nodule 02/19/2018 Gastroesophageal reflux disease 05/17/2017 Assessment & Plan (06/17/2024 10:21 AM EST): Stable. Continue omeprazole Orders: omeprazole (PriLOSEC) [address] capsule; Take 1 capsule (20 mg total) by mouth 1 (one) time each day. Do not crush or chew. External hemorrhoid 06/15/2016 Back pain 06/15/2014 Overview (05/13/2024): Chronic/ L 4 compression fracture MRI 08/06/12 Asthmatic bronchitis , chronic (CMS/HCC V24, CMS /HCC V28) 12/29/2013 Overview (05/13/2024): Ray Tapia Assessment & Plan (06/17/2024 10:21 AM EST): Stable. Continue follow up with telephone supervisor. Continue xolair every 2 weeks, combivent PRN and trelegy daily Anemia 10/05/2013 Assessment & Plan (06/17/2024 10:21 AM EST): Not on iron supplements. Will update labs. See HPI Orders: CBC and differential; Future Iron and TIBC; Future Ferritin; Future Folate; Future Allergic rhinitis 10/05/2013 Overview (05/13/2024): Lola Fay Assessment & Plan (06/17/2024 10:21 AM EST): Continue sybil daily Diverticulosis 10/05/2013 Resolved Problems Problem Noted Date Diagnosed Date Resolved Date Microalbuminuria 09/27/2022 06/17/2024 Encounters Date Type Department Care Team Description 10/19/2024 Telephone Adult [address] [phone] Lexii Solano MD medication clarification 09/28/[address] [phone] Nandini Wills RN 09/23/2024 9:30 AM EDT Office Visit Adult [address] [phone] Maribel Harper PA Hospital discharge follow-up (Primary Dx); NSTEMI (non-ST elevated myocardial infarction) (CMS/HCC V24, CMS/[facility] V28); Type II diabetes mellitus with neurological manifestations (CMS/HCC V24, CMS/[facility] V28); Iron deficiency anemia, unspecified iron deficiency anemia type; Primary hypertension 09/17/2024 Telephone Adult Medicine [address] [phone] Lexii Solano MD Hospital Follow-up ([facility]) from Last 3 Months Immunizations Name Administration Dates Next Due Influenza Quadravalent, 0.5m l (Fluzone High-dose) 65yo and older 04/23/2022 Influenza Quadravalent, MDCK , 0.5ml, preservative free (Flucelvax) 6mo and older 03/09/2020,03/04/2019 Influenza Quadravalent, MDCK , 0.5ml, with preservative (Flucelvax) 6mo and older 05/17/2017 Influenza Quadrivalent, 0.5m l, preservative free (Fluarix; FluLaval; Fluzone) ages 6mo and older (Afluria) 3yo and older 04/18/2021 Influenza Whole 04/18/2021 Influenza trivalent, 0.5mL ( Fluad) 65yo and older 06/17/2024,06/13/2023,05/30/2023,04/23 Influenza trivalent, 0.5mL ( Fluzone High-dose) 65yo and older 06/13/2023 Influenza trivalent, 0.5mL, preservative free (Fluarix; FluLaval; Fluzone) ages 6mo and older (Afluria) 3 years and older 04/18/2021,04/03/2016,06/08/2014 Influenza trivalent, with pr eservative (Fluzone; Afluria) 6mo and older 04/03/2016,06/08/2014 Pfizer (ages 12 & older) Biv alent, COVID-19 04/23/2022 Pneumococcal conjugate 13 va lent (Prevnar 13, PCV13) 2mo and older 04/17/2022 Pneumococcal polysaccharide 23 valent (Pneumovax 23) 2yo and older 10/05/2013,11/14/2007 Tdap Tetanus diptheria acell ular pertussis (Boostrix; Adacel) 7yo and older 11/27/2023,10/05/2013 Surgical History Surgery Date Site/Laterality Comments KNEE SURGERY PROCEDURE: HISTORICAL KNEE SURGERY; COMMENT: right knee 2007 OTHER SURGICAL HISTORY PROCEDURE: NASAL ENDOSCOPY, POLYPECT; COMMENT: septum repair x 2 OTHER SURGICAL HISTORY PROCEDURE: HISTORICAL EAR SURGERY; COMMENT: bilateral KNEE SURGERY PROCEDURE: HISTORICAL KNEE SURGERY; COMMENT: left knee 1997 COLONOSCOPY 11/15/2016 PROCEDURE: HISTORICAL COLONOSCOPY; COMMENT: 8 adenomas and bleeding 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 pylori; nl duodenal bxys; nl esophagus ESOPHAGOGASTRODUODENOSCOPY 02/22/2021 PROCEDURE: [place] ESOPHAGOGASTRODUODENOSCOPY TRANSORAL DIAGNOSTIC; COMMENT: single gastric polyp, rpt 6 months COLONOSCOPY 02/22/2021 PROCEDURE: HISTORICAL COLONOSCOPY; COMMENT: polyps, tattoo of rectum, tics, repeat 2 years ESOPHAGOGASTRODUODENOSCOPY 11/01/2021 PROCEDURE: [place] ESOPHAGOGASTRODUODENOSCOPY TRANSORAL DIAGNOSTIC; COMMENT: Single gastric polyp, repeat 1 year CHOLECYSTECTOMY 2021 PROCEDURE: HISTORICAL CHOLECYSTECTOMY OTHER SURGICAL HISTORY 09/17/2023 N/A PROCEDURE: HISTORY OTHER; COMMENT: hemorrhoidectomy Medical History Medical History Date Comments Asthma DX:Asthma Back pain 06/15/2014 DX:Back pain; CO MMENT: Chronic L 4 compression fracture MRI 08/06/12 GERD (gastroesophageal reflu x disease) 05/12/2015 DX:GERD (gastroesophageal re flux disease) Salmonella enteritis 05/12/2015 DX:Salmonel la enteritis; COMMENT: Diarrhea, colitis 04/14, salmonella positive Tubular adenoma 02/24/2021 DX:Tubular adeno ma; COMMENT: 02/18 tubular adenoma DJD (degenerative joint dise ase) of knee 03/08/2021 DX:DJD (degenerative joint d isease) of knee 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 Lacy and this result faxed to his new state federal relations deputy director, Dr. Tapia Elevated liver enzymes 04/11/2021 DX:Elevat ed liver enzymes NSTEMI (non-ST elevated myoc ardial infarction) (CMS/HCC V24, CMS/HCC V28) Type 2 diabetes mellitus (CM S/HCC V24, CMS/HCC V28) Iron deficiency anemia Family History Medical History Relation Name Comments Hypertension Mother Relation Name Status Comments Mother Alive Social History Tobacco Use Types Packs/Day Years Used Date Smoking Tobacco: Former Cigarettes 1 27.6 0 1964 - 07/01/1992 Smokeless Tobacco: Never Tobacco Cessation:Counseling Given: Not Answered Alcohol Use Standard Drinks/Week Comments Yes 0 (1 standard drink = 0.6 oz pur e alcohol) Sex and Gender Information Value Date Recorded Sex Assigned at Not on file Legal Sex Male 9:09 AM EST Gender Identity Not on file Sexual Orientation Not on file Obstetrics History Last Filed Vital Signs Vital Sign Reading Time Taken Comments Blood Pressure 122/72 09/23/2024 9:38 AM EDT Pulse 57 09/23/2024 9:38 AM EDT Temperature 36.2 ??C (97.2 ??F) 09/23/2024 9:38 AM ED T Respiratory Rate 14 09/23/2024 9:38 AM EDT Oxygen Saturation 97% 09/23/2024 9:38 AM EDT Inhaled Oxygen Concentration - - Weight 104 kg (229 lb) 09/23/2024 9:38 AM EDT Height 180.3 cm (5' 11 ) 09/23/2024 9:38 AM EDT Body Mass Index 31.94 09/23/2024 9:38 AM EDT Plan of Treatment Upcoming Encounters Date Type Department Care Team (Late st Contact Info) Description 12/10/2024 10:00 AM EDT Consult Orthopedic Surgery - [place] [address] [phone] Chaim Castillo DPM [address] [phone] 12/28/2024 9:30 AM EDT Office Visit Adult Medicine [address] [phone] Lexii Solano MD [address] [place] [phone] Health Maintenance Due Date Last Done Comments Diabetes: Annual Retina Eye Exam 1966 Zoster Vaccines (1 of 2) 2006 RSV Immunization Adult Patients (1 - Risk 60-74 years 1-dose series) 2016 Social Influencers of Health Screening 06/09/2022 Colorectal Cancer Screening: Colonoscopy 02/22/2023 02/22/2021 Diabetes: Blood Sugar Control Test (HGBA1C) 01/12/2025 07/15/2024, 09/26/2023 Depression Screening 06/17/2025 06/17/2024, 06/13/20 23 Diabetes: Annual Foot Exam 06/17/202506/17, 06/17/2024, 06/17/2024, Additional history exists Falls Risk Assessment 06/17/2025 06/17/2024 Medicare Annual Wellness Visit 06/17/2025 06/17/2024 Diabetes: Annual Urine Albumin-Creatinine Ratio (uACR) 07/15/2025 07/15/2024, 06/13/2023 Diabetes: Annual GFR (Glomerular Filtration Rate) 07/15/2025 07/15/2024, 11/27/2023, 11/27/2023, Additional history exists Hypertension/CHF/CAD Annual BMP Blood Test 07/15/2025 07/15/2024, 11/27/2023, 11/27/2023, Additional history exists Cholesterol Screening (Lipid Panel) 07/15/2029 07/15/2024, 09/26/2023 DTaP,Tdap,and Td Vaccines (3 - Td or Tdap) 11/26/2033 11/27/2023, 10/05/2013 Hepatitis C Screening Completed 06/08/2014 Pneumococcal Vaccine: 50+ Years Discontinued 04/17/2022, 10/05/2013, 11/14/2007 Abdominal Aortic Aneurysm (AAA) Screen Completed 04/20/2022, 04/20/2022 COVID-19 Vaccine Discontinued 04/23/2022, , 10/05/2020 Influenza Vaccine Completed 06/17/2024, , 06/13/2023, Additional history exists HIB Vaccines Aged Out No longer eligi ble based on patient's age to complete this topic HPV Vaccines Aged Out No longer eligi ble based on patient's age to complete this topic Hepatitis A Vaccines Aged Out No long er eligible based on patient's age to complete this topic Hepatitis B Vaccines Aged Out No long er eligible based on patient's age to complete this topic IPV Vaccines Aged Out No longer eligi ble based on patient's age to complete this topic MMR Vaccines Aged Out No longer eligi ble based on patient's age to complete this topic Meningococcal ACWY Vaccine Aged Out N o longer eligible based on patient's age to complete this topic Meningococcal B Vaccine Aged Out No l onger eligible based on patient's age to complete this topic RSV Immunization Patients Under 20 months Aged Out No longer eligible based on patient's age to complete this topic Varicella Vaccines Aged Out No longer eligible based on patient's age to complete this topic Procedures Procedure Name Priority Date/Time Associated Diagnosis Comments MICROALBUMIN CREATININE URINE RATIO Routine 07/15/2024 9:33 AM EST Type 2 diabetes mellitus with diabetic microalbuminuria, without long-term current use of insulin (CMS/HCC V24, CMS/[facility] V28) COMPREHENSIVE METABOLIC PANEL Routine 07/15/2024 9:33 AM EST Other hyperlipidemia Type 2 diabetes mellitus with diabetic microalbuminuria, without long-term current use of insulin (CMS/HCC V24, CMS/HCC V28) HEMOGLOBIN A1C Routine 07/15/2024 9:33 AM EST Type 2 diabetes mellitus with diabetic microalbuminuria, without long-term current use of insulin (CMS/HCC V24, CMS/HCC V28) LIPID PANEL WITH REFLEX TO DIRECT LDL Routine 07/15/2024 9:33 AM EST Other hyperlipidemia DEPRESSION SCREENING Routine 06/13/2023 DIABETES FOOT EXAM Routine 06/13/2023 US ABDOMINAL AORTA REAL TIME SCREEN STUDY AAA Routine 04/20/2022 8:28 AM EDT Encounter for screening for cardiovascular disorders COLONOSCOPY Routine 02/22/2021 HEPATITIS C SCREENING Routine 06/08/2014 from Last 3 Months or Most Recently Relevant to Health Maintenance Results * (ABNORMAL) Lipid panel with reflex to direct LDL (07/15/2024 9:33 AM EST) Cholesterol 151 0 - 200 mg/dL LAB CHEMISTRY METHOD 07/15/2024 12:22 PM [facility] Triglycerides 158(H) 0 - 150 mg/dL LAB CHEMISTRY METHOD 07/15/2024 12:22 PM [facility] HDL 38(L) >=40 mg/dL LAB CHEMISTRY METHOD 07/15/2024 12:22 PM [facility] LDL Calculated 81 0 - 100 mg/dL LAB CHEMISTRY METHOD 07/15/2024 12:22 PM [facility] VLDL Cholesterol Frandy 31.6 mg/dL LAB CHEMISTRY METHOD 07/15/2024 12:22 PM [facility] Non HDL Chol. (LDL+VLDL) 113 <145 mg/dL LAB CHEMISTRY METHOD 07/15/2024 12:22 PM [facility] Chol/HDL Ratio 4.0 0.0 - 4.4 LAB CHEMISTRY METHOD 07/15/2024 12:22 PM [facility] Blood Venous blood specimen / Unknown Venipuncture / Unknown 07/15/2024 9:33 AM EST 07/15/2024 9:33 AM EST Lexii Solano MD LAB BLOOD ORDERA BLES Final Result [facility] [address] [place] [address], [place] [phone] * Microalbumin creatinine urine ratio (07/15/2024 9:33 AM EST) Creatinine, Urine 276.0 mg/dL LAB CHEMISTRY METHOD 07/15/2024 1:22 PM [facility] Microalb, Ur 18.0 0.0 - 29.0 mg/L LAB CHEMISTRY METHOD 07/15/2024 1:22 PM [facility] Microalb/Creat Ratio 7 <30 mg/g creat LAB CHEMISTRY METHOD 07/15/2024 1:22 PM [facility] Urine Urine specimen obtained by clean catch procedure / Unknown Non-blood Collection / Unknown 07/15/2024 9:33 AM EST 07/15/2024 9:33 AM EST Lexii Solano MD LAB URINE ORDERA BLES Final Result Performing Organization Address City/[facility]/ZIP Co de Phone Number [facility] [address] [place] [address], [place] [phone] * Hemoglobin A1c (07/15/2024 9:33 AM EST) Hemoglobin A1C 6.2 <6.5 % LAB CHEMISTRY METHOD 07/15/2024 2:04 PM [facility] Mean Bld Glu Estim. 131 mg/dL LAB CHEMISTRY METHOD 07/15/2024 2:04 PM [facility] Blood Venous blood specimen / Unknown Venipuncture / Unknown 07/15/2024 9:33 AM EST 07/15/2024 9:33 AM EST Lexii Solano MD LAB BLOOD ORDERA BLES Final Result [facility] [address] [place] [address], [place] [phone] * (ABNORMAL) Comprehensive metabolic panel (07/15/2024 9:33 AM EST) Sodium 135 133 - 145 mmol/L LAB CHEMISTRY METHOD 07/15/2024 12:22 PM [facility] Potassium 4.0 3.5 - 5.5 mmol/L LAB CHEMISTRY METHOD 07/15/2024 12:22 PM [facility] Chloride 102 96 - 110 mmol/L LAB CHEMISTRY METHOD 07/15/2024 12:22 PM [facility] CO2 28 21 - 32 mmol/L LAB CHEMISTRY METHOD 07/15/2024 12:22 PM [facility] Anion Gap 5 3 - 11 LAB CHEMISTRY METHOD 07/15/2024 12:22 PM [facility] Glucose 115(H) 70 - 100 mg/dL LAB CHEMISTRY METHOD 07/15/2024 12:22 PM [facility] BUN 9 5 - 25 mg/dL LAB CHEMISTRY METHOD 07/15/2024 12:22 PM [facility] Creatinine 0.96 0.70 - 1.30 mg/dL LAB CHEMISTRY METHOD 07/15/2024 12:22 PM [facility] eGFR 87 >=60 mL/min/1. 73m2 LAB CHEMISTRY METHOD 07/15/2024 12:22 PM [facility] Comment:Calculation based on the??Chronic Kidney Disease Epidemiology Collaboration (CKD-EPI) equation refit??without adjustment for race. BUN/Creatinine Ratio 9.4 LAB CHEMISTRY METHOD 07/15/2024 12:22 PM [facility] Calcium 8.8 8.5 - 10.5 mg/dL LAB CHEMISTRY METHOD 07/15/2024 12:22 PM [facility] AST (SGOT) 15 10 - 42 unit/L LAB CHEMISTRY METHOD 07/15/2024 12:22 PM [facility] ALT (SGPT) 30 10 - 60 unit/L LAB CHEMISTRY METHOD 07/15/2024 12:22 PM [facility] Alkaline Phosphatase 127(H) 42 - 121 unit/L LAB CHEMISTRY METHOD 07/15/2024 12:22 PM [facility] Total Protein 7.6 6.0 - 8.0 g/dL LAB CHEMISTRY METHOD 07/15/2024 12:22 PM EST [facility] Albumin 3.4 3.2 - 5.0 g/dL LAB CHEMISTRY METHOD 07/15/2024 12:22 PM EST [facility] Total Bilirubin 1.6(H) 0.0 - 1.4 mg/dL LAB CHEMISTRY METHOD 07/15/2024 12:22 PM EST [facility] Blood Venous blood specimen / Unknown Venipuncture / Unknown 07/15/2024 9:33 AM EST 07/15/2024 9:33 AM EST Lexii Solano MD LAB BLOOD ORDERA BLES Final Result [facility] [address] [place] [address], [place] [phone] * Depression Screening (06/13/2023) Depression Screening abstracted Historical Provider HEALTH MAINTENANCE Final Result * Diabetes Foot Exam (06/13/2023) Pathologist [facility] Diabetes: Annual Foot Exam abstracted Historical Provider HEALTH MAINTENANCE Final Result * ABDOMINAL AORTA REAL TIME SCREEN STUDY AAA (04/20/2022 8:28 AM EDT) Anatomical Region Laterality Modality Ultrasound 04/17/2022 9:21 AM EDT Narrative 04/20/2022 11:14 AM EDT EXAM: Ultrasound evaluation of the abdominal aorta. HISTORY: Screening for AAA COMPARISON:None Technique: Grayscale and Doppler images of the abdominal aorta and proximal common iliac arteries were obtained. FINDINGS: Proximal abdominal aorta measures 2.3 cm in caliber Mid abdominal aorta measures 2.0 cm in caliber Distal abdominal aorta measures 1.4 x 2.1 x 1.5 cm in caliber Left proximal common iliac artery measures 1.0 cm in caliber Right proximal common iliac artery measures 1.0 cm in caliber IMPRESSION: IMPRESSION: No evidence of abdominal aortic aneurysm Procedure Note Konstantin Acevedo MD - 06/19/2022 EXAM: Ultrasound evaluation of the abdominal aorta. HISTORY: Screening for AAA COMPARISON:None Technique: Grayscale and Doppler images of the abdominal aorta andproximal common iliac arteries were obtained. FINDINGS: Proximal abdominal aorta measures 2.3 cm in caliber Mid abdominal aorta measures 2.0 cm in caliber Distal abdominal aorta measures 1.4 x 2.1 x 1.5 cm in caliber Left proximal common iliac artery measures 1.0 cm in caliber Right proximal common iliac artery measures 1.0 cm in caliber IMPRESSION: IMPRESSION: No evidence of abdominal aortic aneurysm Lexii Solano MD [facility] US PROCEDURE S Final Result * Colonoscopy (02/22/2021) Pathologist [facility] Colonoscopy no interpretation , abstracted Anatomical Region Laterality Modality Other Historical Provider HEALTH MAINTENANCE Final Result * Hepatitis C Screening (06/08/2014) [facility] Hepatitis C Screening abstracted Historical Provider HEALTH MAINTENANCE Final Result from Last 3 Months or Most Recently Relevant to Health Maintenance Insurance MEDICARE [place]ICAID [place] [employer] Care Teams 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
--- OUTSIDE RECORDS SUMMARY | 2024-11-11 10:15 | XMS_ITS | Clinical Summary ---
Author Organization [facility] Address [address] [place] [id number] Care Team Providers Care Dealer Card Room Name Role Phone Lexii Solano MD Primary Care Pr ovider Allergies No known active allergies Medications No known medications Active Problems No known active problems Social History Tobacco Use Types Packs/Day Years Used Date Smoking Tobacco: Never Assessed Sex and Gender Information Value Date Recorded Sex Assigned at Male 06/09/2022 2:37 PM EST Gender Identity Not on file Sexual Orientation Not on file Job Start Date Occupation Industry Not on file Not on file Not on file Last Filed Vital Signs Vital Sign Reading Time Taken Comments Blood Pressure 120/78 06/09/2022 4:43 PM EST Pulse 72 06/09/2022 4:43 PM EST Temperature 37.4 ??C (99.3 ??F) 06/09/2022 4:43 PM ES T Respiratory Rate 16 06/09/2022 4:43 PM EST Oxygen Saturation 92% 06/09/2022 4:43 PM EST Inhaled Oxygen Concentration - - Weight 108.9 kg (240 lb) 06/09/2022 2:14 PM EST Height 180.3 cm (5' 11 ) 06/09/2022 2:14 PM EST Body Mass Index 33.47 06/09/2022 2:14 PM EST Plan of Treatment Health Maintenance Due Date Last Done Comments Hepatitis C Screening 1956 Depression Screening 1968 Preventative Health Evaluation 1974 Colon Cancer Screening (Colonoscopy) 2001 Shingrix-Zoster Vaccine (1 of 2) 2006 Fall Risk Assessment 2021 DTap / Tdap / Td (2 - Td or Tdap) 10/06/2023 10/05/2013 COVID-19 Vaccine ( season) 2024 04/24/2021, 10/05/2020 Influenza Vaccine (#1) 2024 0, 03/04/2019, 05/17/2017, Additional history exists Pneumococcal Vaccine (3 of 3 - PPSV23 or PCV20) 04/17/2027 04/17/2022, 10/05/2013, 11/14/2007 RSV Adult > 60+ Yrs or (1 - 1-dose 75+ series) 12/08/2031 Hepatitis B Vaccines Aged Out No long er eligible based on patient's age to complete this topic RSV Ped < 20 months Aged Out No longe r eligible based on patient's age to complete this topic Care Teams Dealer Card Room Relationship Specialty Start Date End Date Lexii Solano MD [address] [facility] [place] [id number] PCP - General 06/09/22
== END 2024-11-11 12:21 | disposition home or self-care (01) ==
PROVIDERS: PCP Family Medicine; Visit Provider Physician Assistant
DX: J06.9 Acute upper respiratory infection, unspecified (principal)

== ENCOUNTER → 2024-11-11 09:33 | Outpatient (BNVA) | payer OTHER, SELFPAY | PROVIDERS: PCP Family Medicine; Visit Provider Physician Assistant | DX: J06.9 Acute upper respiratory infection, unspecified (principal) | CPT/HCPCS: 99212 ==